=== PATIENT | female | born 1965 | race Caucasian/White ===

== ENCOUNTER 2022-01-21 10:26 | Outpatient (CLI) | payer OTHER, SELFPAY ==
--- NOTE | 2022-01-21 10:15 | MR_ITS ---
[address] [address] Phone:?[phone] Fax:?[phone] Referring Physician Information: Heath Bright M.D. [id number] [facility] [address] Phone:?[phone] Fax:?[phone] Patient:Kathleen Garcia D.O.B:?1965 Sex:?Female Phone:?[phone] [facility] MRN:?[id number] Exam Date:?01/21/2022 ? EXAM: MRI of the LEFT KNEE, without contrast CLINICAL INFORMATION: Female, 56 years old, with left knee pain. INDICATION: Evaluate for lateral meniscal tear. PRIOR SURGERY: None reported. PLAIN FILMS: None available. COMPARISONS: No prior MRIs available. TECHNICAL INFORMATION: Using a 1.5T MR scanner and a localizing surface coil: sagittals: PD, T2FS coronals: PD, T2, STIR axials: PD, T2FS SEDATION: None CONTRAST: None FINDINGS: Knee joint: Effusion: Moderate left knee effusion. Popliteal cyst: None. Loose bodies: None. Subcutaneous and extra-articular soft tissues: Unremarkable. Ligaments: ACL: Moderate marked thickening and abnormal intrasubstance signal throughout the ACL, without ACL tear (sagittal T2FS series 9 images 15 & 16). PCL: Intact PCL, without acute or chronic injury. MCL: Intact MCL superficial and deep layers, without injury. LCL: Intact LCL, without injury. Posterolateral corner: No posterolateral corner soft tissue injury. Popliteus, biceps femoris, iliotibial band, popliteofibular ligament and lateral gastrocnemius are intact. Posteromedial corner: No posteromedial corner soft tissue injury. Semimembranosus, pes anserine tendons and posterior oblique ligament are without injury, tendinopathy or bursitis. Extensor mechanism: Patellar tendon: Mild proximal patellar tendinopathy, without tear. Quadriceps tendon: Intact, without tendinopathy. Retinacula: Medial and lateral retinacula are intact. Fat pads: Unremarkable infrapatellar Hoffa's, quadriceps and prefemoral fat pads. Medial compartment: Medial meniscus: Apical free edge fraying/subtle tearing is present throughout the posterior horn over a length of 1.8 cm (sagittal T2FS series 9 images 9-13). This is associated with a 2 x 3 mm flap fragment at the posterior horn/root junction (sagittal PDFS series 9 image 13). No extrusion or parameniscal cyst. Medial femoral condyle & tibial plateau: Broad-based grade II/III chondromalacia throughout the central, weightbearing aspect of the medial compartment, with mild marginal osteophytosis. Lateral compartment: Lateral meniscus: Complex, multidirectional degenerative tearing throughout nearly the entire lateral meniscus (sagittal T2FS series 9 images 17-25). This is associated with 3 mm of meniscal extrusion. Lateral femoral condyle & tibial plateau: Broad-based grade III/IV chondromalacia throughout the central, weightbearing aspect of the lateral compartment, with moderate marginal osteophytosis (coronal PD series 10 image 21 and sagittal T2FS series 9 image 21). Patellofemoral joint: Patella: Generalized grade III chondromalacia of the patella. Moderate marginal osteophytosis. Trochlea: Generalized grade III chondromalacia of the trochlea, with moderate- marked marginal osteophytosis. Proximal tibiofibular joint: Unremarkable, without evidence of ligament sprain injury, joint effusion or adjacent marrow edema. Bones: No stress/occult fractures or other marrow edema/pathology. IMPRESSION: 1. High-grade, complex degenerative tearing involving essentially entire lateral meniscus, with 3 mm of meniscal extrusion. 2. Apical free edge fraying/subtle tearing of the medial meniscal posterior horn measuring 1.8 cm, with a 2 x 3 mm flap fragment posterior horn/root junction. 3. Moderate-advanced osteoarthritis of the lateral compartment. 4. Moderate osteoarthritis of the patellofemoral compartment. 5. Mild osteoarthritis of the medial compartment. 6. Marked mucinous degeneration of the ACL, without tear. No PCL, MCL, or LCL sprain/tear. 7. Mild proximal patellar tendinopathy, without tear. BC Electronically signed on 01/21/2022 2:08:00 PM by Leo Isabel M.D.
== END 2022-01-21 10:27 | disposition home or self-care (01) ==
LOC: MRI 10:27
PROVIDERS: PCP Family Medicine; Visit Provider Orthopaedic Surgery
DX: M25.562 Pain in left knee (principal); M23.222 Derangement of posterior horn of medial meniscus due to old tear or injury, left knee; S83.282A Other tear of lateral meniscus, current injury, left knee, initial encounter; M17.12 Unilateral primary osteoarthritis, left knee
CPT/HCPCS: 73721

== ENCOUNTER 2022-06-03 20:46 | Emergency (ER) | payer OTHER, SELFPAY ==
[2022-06-03 21:05] VITALS: BP 144/85; PULSE 75; RESP 18; TEMP 36.7; O2SAT 99; BMI 29.9
[2022-06-03 21:08] LABS: Appearance Urine Slightly Cloudy (Clear); Bilirubin Urine Negative (Negative); Blood Urine Trace-intact (Negative); Color Urine Yellow (Yellow); Glucose Urine Negative (Negative); Ketones Urine Trace (Negative); Leukocyte Esterase Urine 1+ (Negative); Nitrite Urine Negative (Negative); Protein Urine 1+ (Negative); Urobilinogen Urine 0.2 (0.2-1.0)
--- NOTE | 2022-06-03 21:20 | ED_ITS ---
HPI - Female Genitourinary General Chief complaint: Urogenital Problems, Female Stated complaint: UTI Time Seen by Provider: 06/03/22 20:57 History of Present Illness HPI Narrative: 57-year-old woman presenting to the emergency department with concern of potential urinary tract infection. She feels that it came on fairly quickly. She has little nervous as has surgery scheduled for the otherwise she was just waited to be seen in clinic. Has had no fever. No nausea. No flank pain. Has been experiencing dysuria since yesterday. Notes that did feel she could take cranberry capsules as could potentiate bleeding. Does have a history Down's remote of a kidney stone in the right flank and she says that this pain is very different. She does have a little bit of some achiness in her right adnexal area. Deeper review of records shows a urine culture collected in May of 2009 showing greater than 100,000 colonies of mixed Gram-positive Related Data Home Medications Medication Instructions Recorded Confirmed acetaminophen 500 mg tablet 500 mg PO PRN 02/18/22 02/18/22 ascorbic acid (vitamin C) 500 mg 500 mg PO DAILY 02/18/22 02/18/22 tablet aspirin 81 mg tablet,delayed 81 mg PO BID 02/18/22 02/18/22 release celecoxib 100 mg capsule 100 mg PO BID 02/18/22 02/18/22 cephalexin 500 mg capsule 2,000 mg PO ONCE 02/18/22 02/18/22 cholecalciferol (vitamin D3) 50 2,000 unit PO DAILY 02/18/22 02/18/22 mcg (2,000 unit) tablet cyclobenzaprine 10 mg tablet 10 mg PO PRN 02/18/22 02/18/22 fluticasone propionate 50 2 intranasal .Daily as needed PRN 02/18/22 02/18/22 mcg/actuation nasal spray,suspension gabapentin 300 mg capsule 300 mg PO TID 02/18/22 02/18/22 levothyroxine 137 mcg tablet 137 mcg PO DAILY 02/18/22 02/18/22 multivitamin with iron 1 tab PO QDAY 02/18/22 02/18/22 omega-3 fatty acids 500 mg capsule 500 mg PO QDAY 02/18/22 02/18/22 selenium 100 mcg tablet 100 mcg PO QDAY 02/18/22 02/18/22 zinc sulfate 50 mg zinc (220 mg) 100 mg PO DAILY 02/18/22 02/18/22 capsule Allergies Allergy/AdvReac Type Severity Reaction Status Date / Time codeine Allergy Severe STATES Verified 02/18/22 10:21 THROAT TIGHTENS, JAW SWELLS latex Allergy Intermediate STATES Verified 02/18/22 10:21 SKIN IRRITATION, RASH penicillin V Allergy Intermediate STATES Verified 02/18/22 10:21 CONTRACTED C DIF adhesive Allergy Unknown Verified 02/18/22 10:21 hydrocodone Allergy Unknown ITCHING, Verified 02/18/22 10:21 RASH oxycodone Allergy Unknown ITCHING, Verified 02/18/22 10:21 RASH nutrasweet Allergy Severe Migraine Uncoded 02/18/22 10:21 Clavulanate Allergy Mild States Uncoded 02/18/22 10:21 Extreme Diarrhea most antibiotics Allergy Unknown Uncoded 02/18/22 10:21 Review of Systems Status of ROS: Reports: 6 or more systems reviewed and unremarkable except as noted in History and below PFSH PFSH Surgical History Status post knee replacement Status post total right knee replacement Family History Father Lung cancer Mother Parkinsons Social History Smoking Status: Never smoker How often do you have a drink containing alcohol: never AUDIT-C Alcohol total score: 0 Non-prescribed substance use: denies use Caffeine: No Exam Narrative: Exam Narrative: Pleasant. Of good energy. Breathing easily. Cranial nerves 2-12 intact. Moving all extremities without difficulty. Transitions without difficulty. Skin is warm and dry. She has no pain to palpation or percussion of the flanks. Is a little sore suprapubic in in the right adnexal area. No peritoneal signs. Const: Vital Signs, click to edit/add: Vital Signs - 24 hr 06/03/22 21:05 Temperature 98.0 F Pulse Rate [Right Pulse Oximeter] 75 Respiratory Rate 18 Blood Pressure [Ri ght Upper Arm] 144/85 H Pulse Oximetry 99 Oxygen Delivery Me thod Room Air Documenting provider has reviewed patient's vital signs: yes Course Course Hospital Course: Urinalysis collected by the time I am seeing Ms. Finger. Vital Signs Vital signs: Initial Vital Signs Temperature 98.0 F 06/03/22 21:05 Temperature Source Temporal Artery Scan 06/03/22 21:05 Pulse Rate 75 06/03/22 21:05 Respiratory Rate 18 06/03/22 21:05 Blood Pressure 144/85 H 06/03/22 21:05 Blood Pressure Mean 104 06/03/22 21:05 Blood Pressure Position Sitting 06/03/22 21:05 Pulse Oximetry 99 06/03/22 21:05 Oxygen Delivery Method 06/03/22 21:05 Vital Signs Temperature 98.0 F 06/03/22 21:05 Pulse Rate 75 06/03/22 21:05 Respiratory Rate 18 06/03/22 21:05 Blood Pressure 144/85 H 06/03/22 21:05 Pulse Oximetry 99 06/03/22 21:05 Oxygen Delivery Method 06/03/22 21:05 Temperature 98.0 F 06/03/22 21:05 Pulse Rate 75 06/03/22 21:05 Respiratory Rate 18 06/03/22 21:05 Blood Pressure 144/85 H 06/03/22 21:05 Pulse Oximetry 99 06/03/22 21:05 Oxygen Delivery Method 06/03/22 21:05 MDM - Female Genitourinary MDM Narrative Medical decision making narrative: Clinical picture and urinalysis I think is consistent with cystitis. Urine culture pending Sounds like has had cephalexin before had as prophylaxis for dental procedures due to orthopedic procedures. Reports underlying history of Clostridium difficile. Lab Data Attestation: I reviewed the patient's lab results. Labs: Lab Results 06/03/22 Range/Units 21:00 Urine Color Yellow (Yellow) Urine Appearance Slightly Cloudy A (Clear) Urine pH 7.0 (5.0-8.5) Ur Specific [place] 1.020 (1.000-1.030) Urine Protein 1+ A (Negative) Urine Glucose (UA) Negative (Negative) Urine Ketones Trace A (Negative) Urine Blood Trace-intact A (Negative) Urine Nitrite Negative (Negative) Urine Bilirubin Negative (Negative) Urine Urobilinogen 0.2 (0.2-1.0) Ur Leukocyte Esterase 1+ A (Negative) Urine RBC 2-5 A (0-2) Urine WBC 10-25 A (0-5) Ur Squamous Epith Cells Few (None-Few) Urine Bacteria Few A (None) Discharge Plan Discharge Clinical Impression: Cystitis Patient Disposition: Home, Self-Care Condition: Stable Additional Instructions: Stay well-hydrated; water is good. Report increasing abdominal/flank pain, vomiting, associated fever. Urine culture will be pending here. Best wishes on your upcoming surgery. Cephalexin and phenazopyridine from [facility] Prescriptions: No Action cholecalciferol (vitamin D3) 50 mcg (2,000 unit) tablet 2,000 unit PO DAILY zinc sulfate 50 mg zinc (220 mg) capsule 100 mg PO DAILY fluticasone propionate 50 mcg/actuation spray,suspension 2 intranasal .Daily as needed PRN gabapentin 300 mg capsule 300 mg PO TID ascorbic acid (vitamin C) 500 mg tablet 500 mg PO DAILY levothyroxine 137 mcg tablet 137 mcg PO DAILY cyclobenzaprine 10 mg tablet 10 mg PO PRN selenium 100 mcg tablet 100 mcg PO QDAY omega-3 fatty acids 500 mg capsule 500 mg PO QDAY multivitamin with iron Tablet 1 tab PO QDAY celecoxib 100 mg capsule 100 mg PO BID cephalexin 500 mg capsule 2,000 mg PO ONCE Rx Instructions: Take 4 capsules 1 hour prior to dental appointment acetaminophen 500 mg tablet 500 mg PO PRN aspirin 81 mg tablet,delayed release (DR/EC) 81 mg PO BID Follow Up/Referrals: Ilda Pozo MD [Primary Care Provider] - Stand Alone Forms: [employer] Info Instructions
[2022-06-03 21:34] LABS: Bacteria Urine Few; Squamous Epithelial Cell Urine Few (None-Few)
== END 2022-06-03 21:49 | disposition home or self-care (01) ==
PROVIDERS: Emergency Provider Family Medicine; PCP Family Medicine
DX: N30.90 Cystitis, unspecified without hematuria (principal)
CPT/HCPCS: 81001; 87086; 99283

== ENCOUNTER 2022-06-09 10:29 | Day surgery (SDC) | payer OTHER, SELFPAY ==
[2022-06-09] VITALS (22 sets, daily range): BP systolic 94–156; BP diastolic 58–109; PULSE 59–86; RESP 12–18; TEMP 35.8–37.2; O2SAT 93–99; BMI 37.3
[2022-06-09] MEDS: CELECOXIB 200 MG CAPSULE PO ×2 (10:36→21:01)
[2022-06-09] MEDS: MIDAZOLAM HCL 1 MG/ML inj IVP (10:36)
[2022-06-09] MEDS: ACETAMINOPHEN 500 MG TABLET 1000 MG PO ×2 (10:36→18:33)
[2022-06-09] MEDS: fentaNYL 100 MCG/2 ML inj IVP (12:16)
--- NOTE | 2022-06-09 12:23 | SUR.PREOP ---
TIME?OUT:?1215 PT/RN/MDA?VERIFICATION?OF?SURGICAL?SITE,?PROCEDURE,?AND?CONSENT OBTAINED?PRIOR?TO?INVASIVE?PROCEDURE.
[2022-06-09] MEDS: CEFAZOLIN 2 GM INJ IVP (13:00)
--- NOTE | 2022-06-09 14:11 | CRLHL7_ITS ---
For Patients: As a result of the Cures Act, medical imaging exams and procedure reports are released immediately into your electronic medical record. You may view this report before your referring provider. If you have questions, please contact your health care provider. Indication: POST-OP LEFT TKA Technique: Two views left knee Findings/Impression: Hardware from a left total knee arthroplasty is in satisfactory position. Bone alignment is normal. No sign of acute fracture. Postop changes are within normal limits. Dictated by Fran Taveras MD @ 06/10/2022 9:10:22 AM (Electronically Signed)
--- NOTE | 2022-06-09 14:16 | P.ORPRC_ITS ---
Procedure Note Date of procedure: 06/09/22 Procedure: SURGEON: Heath Bright MD RESPIRATORY SUPERVISOR: Nasrin Devine PA-C PREOPERATIVE DIAGNOSIS: Left knee osteoarthritis POSTOPERATIVE DIAGNOSIS: Left knee osteoarthritis NAME OF OPERATION: Left total knee arthroplasty ANESTHESIA: Spinal ESTIMATED BLOOD LOSS: 0 mL COMPLICATIONS: None SPECIMENS: None DRAINS: None PREOPERATIVE ANTIBIOTICS: Ancef 2 grams IMPLANTS: 1. J&J Attune # 6 narrow posterior stabilized femur 2. # 4 fixed-bearing tibia 3. #6 posterior stabilized, 5 mm fixed-bearing polyethylene 4. 38 patella INDICATIONS: The patient is a 57-year-old with a longstanding history of severe, unrelenting left knee pain secondary to end-stage (grade IV) left knee osteoarthritis. Despite appropriate nonoperative management, including activity modification, anti-inflammatories, [id number] pain medication, bracing, physical therapy, and injections they continue to have pain and disability. Operative intervention was offered. The risks, benefits and expected outcomes were discussed in detail. These included but were not limited to: Infection, bleeding, injury to blood vessel or nerve, venous thromboembolism. All questions were answered to their satisfaction. Use of an assistant gm of content & delivery was necessary throughout the case for patient positioning and safety, soft tissue retraction, and closure. PROCEDURE: Spinal anesthesia was administered. The patient was placed supine on the operating table. The assistant gm of content & delivery made sure the patient was positioned appropriately. The lower extremity was prepped and draped in the usual sterile fashion. The limb was exsanguinated with the Sathya bandage. The pneumatic tourniquet was inflated to 300 mmHg. A standard anterior incision was made with the knee in flexion. Subcutaneous dissection was sharply taken through fascial layer #1. Full-thickness medial and lateral flaps were elevated. The assistant gm of content & delivery retracted the soft tissues and protected them throughout the case. A standard medial parapatellar approach was made. The patella was everted. The infrapatellar fat pad was preserved. The menisci and cruciate ligaments were sharply d?brided. Marginal osteophytes were d?brided with the rongeur. The drill was used to penetrate the femoral canal. The canal was aspirated and irrigated with pulse lavage. The intramedullary femoral guide was placed for a 5-degree valgus cut, removing 10 mm off the distal femur. The saw was used to make the cut. Whitesides line and the trans epicondylar axis were marked. The femoral sizing guide was pinned onto the distal femur. Three degrees of external rotation nicely parallels the transepicondylar axis. Pins were placed for posterior referencing. The four-in-one cutting guide was pinned onto the distal femur. The anterior, posterior, and chamfer cuts were made. The assistant gm of content & delivery protected the collateral ligaments. The box cutting guide was pinned. The box cuts were made. The boxed trial was placed and was an excellent fit. Drill holes for the lugs were made. Attention was then turned to the proximal tibia. The extramedullary tibial guide was placed for a neutral varus/valgus cut with 5 degrees of posterior slope, removing 2 mm based off the medial tibial surface. The assistant gm of content & delivery protected the collateral ligaments and the neurovascular bundle. The saw was used to make the cut. Trial components were placed. The knee was nicely balanced in both flexion and extension. The trial components were removed. The tray was placed in appropriate rotation, parallel to our tibial cutting pins. It was pinned by the assistant gm of content & delivery and the drill and the punch were used. The tray was removed. The punch was used again. We placed a bone plug in the femoral canal. Attention was then turned to the patella. [place] patellar thickness was 23 mm. The lobster claw resection guide was used with the 9.5 mm yessenia. The saw was used to make the cut. Drill holes were made by the assistant gm of content & delivery. The trial was placed and was an excellent fit. Cancellous surfaces were irrigated with pulse lavage and thoroughly dried by the assistant gm of content & delivery. We cemented the tibial component, then the femoral component. We impacted the 5 mm polyethylene onto the tibial tray. The knee was brought into full extension. We then cemented the patellar component. Excessive cement was removed. The cement was allowed to harden. The knee was taken through a range of motion and was found to be nicely balanced in both flexion and extension. The patella tracks centrally. The assistant gm of content & delivery did a three minute dilute Betadine solution soak. The assistant gm of content & delivery irrigated the wound with 3 liters of normal saline via pulse lavage. The assistant gm of content & delivery reapproximated the extensor mechanism with #1 Vicryl in an interrupted [id number] fashion. The assistant gm of content & delivery then ran the extensor mechanism with a #1 PDO Stratafix. The assistant gm of content & delivery closed the subcutaneous tissues with a 3-0 Stratafix and the skin with a running 3-0 Stratafix in a subcuticular fashion. Glue was used to seal the skin. The assistant gm of content & delivery placed a dry dressing, LEONEL stocking, and Polar Care. Sponge and needle counts were correct x2. The patient tolerated the procedure well. There were no apparent complications. They were carefully transferred to the hospital bed and taken to the postanesthesia care unit in satisfactory condition. PLAN: The patient will be mobilized with physical therapy. Aspirin will be used for DVT prophylaxis. They will be discharged to home once medically appropriate.
[2022-06-09] MEDS: LACTATED RINGERS 1000 ML 1,000 ML 100 ML IV (15:14)
--- NOTE | 2022-06-09 15:19 | W.ANESCHARGE ---
Anesthesia Charges Start Date/Time Anesthesia Start Date: 06/09/22 Anesthesia Start Time: 12:43 Stop Date/Time Anesthesia Stop Date: 06/09/22 Anesthesia Stop Time: 15:19 Summary Emergency: No
[2022-06-09] MEDS: LACTATED RINGERS 1000 ML 1,000 ML 75 ML IV (15:56)
--- NOTE | 2022-06-09 15:57 | W.ANESCHARGE ---
Anesthesia Charges Start Date/Time Anesthesia Start Date: 06/09/22 Anesthesia Start Time: 12:43 Stop Date/Time Anesthesia Stop Date: 06/09/22 Anesthesia Stop Time: 15:19 Summary Emergency: No
--- NOTE | 2022-06-09 15:58 | W.PM.NB ---
Nerve Block Nerve Block Time Seen by Provider: 12:15 Date Seen: 06/09/22 Type of block requested by surgeon for post-operative analgesia: adductor canal Side: left Time out performed: Yes Verification of patient name: Yes Verification of date of : Yes Site marking: site marked Name of person performing procedure: Stanley Continuous monitoring Was continuous monitoring of O2 sat, B/P, personnel monitor, recorded every 15 minutes?: Yes Procedure Checklist: sterile prep, needles and gloves Ultrasound guided. Images saved: Yes Medications given in 5ml increments after negative aspiration: Ropivicaine %: 0.5 mL: 20 Needle gauge: 20 Decadron (mg): 10 Precedex (mcg): 25 Patient tolerated procedure well: Yes Additional comments: Needle noted adjacent to nerve Block Charges Block Charge (with Pro Fee): Femoral Nerve Use of Ultrasound Machine for Block: Yes- US Guidance/pain block
--- NOTE | 2022-06-09 15:59 | W.PM.NB ---
Nerve Block Nerve Block Time Seen by Provider: 12:15 Date Seen: 06/09/22 Type of block requested by surgeon for post-operative analgesia: geniculars Side: left Time out performed: Yes Verification of patient name: Yes Verification of date of : Yes Site marking: site marked Name of person performing procedure: Stanley Continuous monitoring Was continuous monitoring of O2 sat, B/P, oral and maxillofacial pathologist, recorded every 15 minutes?: Yes Procedure Checklist: sterile prep, needles and gloves Medications given in 5ml increments after negative aspiration: Ropivicaine %: 0.5 mL: 9 Needle gauge: 25 Patient tolerated procedure well: Yes Block Charges Block Charge (with Pro Fee): Genicular Nerve Block Use of Ultrasound Machine for Block: No
--- NOTE | 2022-06-09 16:13 | PM.IMCN1 ---
Date of Consult Consult date: 06/09/22 Requesting Physician: Orthopedics Primary Care Provider: Ilda Pozo MD Consult Narrative Reason for consult: Postoperative medical management Narrative: Carolina Garcia is a 57 year old female admitted to the hospital for left total knee arthroplasty. Procedures performed by Dr. Bright. There were no complications. Postoperatively she is generally doing well. Her spinal anesthesia still in effect and so she is having no pain and no sensation in her legs. She is now awake and able to carry on a conversation. Preoperatively she was doing well. She did have a suspected urinary tract infection with mild dysuria. She was seen in the emergency department where she had I urinalysis and urine culture. The urinalysis showed pyuria. The urine culture subsequently grew less than 50,000 colonies of mixed Gram-positive sean. Her symptoms have resolved with a 5 day treatment of cephalexin. Preop physical did not identify any significant perioperative concerns. Review of Systems Narrative: She reports no concerns or recent illness other than her urinary symptoms last week, now resolved. She is observed to snore when she sleeps on her back. She has not had a formal sleep study or diagnosis of sleep apnea. 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 Degenerative tear of lateral meniscus of left knee Degenerative tear of left medial meniscus Diabetic neuropathy Herniated lumbar intervertebral disc Hyperlipidemia Hypothyroidism Laceration of scalp Osteoarthritis of left knee Sciatica Type 2 diabetes mellitus Surgical History (Updated 06/09/22 @ 16:17 by Thierno Fernandes MD) History of section History of hemorrhoidectomy History of rectal sphincterotomy Status post knee replacement Status post total right knee replacement Family History Father Lung cancer Mother Parkinsons Social History (Updated 06/09/22 @ 16:19 by Thierno Fernandes MD) Narrative: She does not smoke. She rarely drinks alcohol. Smoking Status: Never smoker Second hand tobacco smoke exposure: No How often do you have a drink containing alcohol: monthly or less How many standard drinks containing alcohol do you have on a typical day: 1 or 2 How often do you have six or more drinks on one occasion: Never AUDIT-C Alcohol total score: 1 Non-prescribed substance use: marijuana (any form) Non-prescribed substance use details: CBD/THC- vaping or gummies Caffeine: No Meds Home Medications and Allergies Home Medications Medication Instructions Recorded Confirmed Type fluticasone propionate 50 2 spray intranasal DAILY PRN 02/18/22 06/09/22 History mcg/actuation nasal spray,suspension gabapentin 300 mg capsule 300 - 600 mg PO BID 02/18/22 06/09/22 History levothyroxine 137 mcg tablet 137 mcg PO DAILY 02/18/22 06/09/22 History multivitamin with iron 1 tab PO DAILY 02/18/22 06/09/22 History celecoxib 200 mg capsule (Celebrex) 200 mg PO BID 06/09/22 06/09/22 History semaglutide 0.25 mg or 0.5 mg (2 0.5 mg subcut .WEEKLY 06/09/22 06/09/22 History mg/1.5 mL) subcutaneous pen injector (Ozempic) Allergies Allergy/AdvReac Type Severity Reaction Status Date / Time codeine Allergy Severe STATES Verified 02/18/22 10:21 THROAT TIGHTENS, JAW SWELLS latex Allergy Intermediate STATES Verified 02/18/22 10:21 SKIN IRRITATION, RASH penicillin V Allergy Intermediate STATES Verified 02/18/22 10:21 CONTRACTED C DIF adhesive Allergy Unknown Verified 02/18/22 10:21 hydrocodone Allergy Unknown ITCHING, Verified 02/18/22 10:21 RASH oxycodone Allergy Unknown ITCHING, Verified 02/18/22 10:21 RASH nutrasweet Allergy Severe Migraine Uncoded 02/18/22 10:21 Clavulanate Allergy Mild States Uncoded 02/18/22 10:21 Extreme Diarrhea most antibiotics Allergy Unknown Uncoded 02/18/22 10:21 Allergies/Adverse Reaction Comments: Amoxicillin caused her to get C diff infection Hydrocodone and oxycodone caused itching. She tolerates hydromorphone without difficulty Exam Narrative: Exam Narrative: She is alert and appears in no distress. Eyes normal. Oropharynx with small airway. Neck is supple without mass or adenopathy. Respirations are clear to auscultation. Breathing is unlabored. Cardiovascular: S1, S2, regular rate and rhythm. No murmur gallop or rub. Abdomen: Bowel sounds active. Abdomen is soft without tenderness or mass. Extremities with intact pulses and currently absent sensation. No edema. Const: Vital Signs, click to edit/add: Vital Signs - 24 hr 06/09/22 10:56 06/09/22 15:15 06/09/22 15:20 Temperature 97.8 F 97.8 F Pulse Rate 70 70 66 Pulse Rate [Left P ulse Oximeter] Respiratory Rate 16 16 14 Blood Pressure 125/87 98/58 L 94/62 Blood Pressure [Le ft Arm] Pulse Oximetry 96 94 96 Oxygen Delivery Me thod Room Air Room Air 06/09/22 15:25 06/09/22 15:30 06/09/22 15:35 Temperature Pulse Rate 64 64 62 Pulse Rate [Left P ulse Oximeter] Respiratory Rate 14 16 14 Blood Pressure 96/64 105/75 104/61 Blood Pressure [Le ft Arm] Pulse Oximetry 95 95 93 Oxygen Delivery Me thod 06/09/22 15:40 06/09/22 15:45 06/09/22 16:00 Temperature 97.2 F L 97.2 F L Pulse Rate 60 63 Pulse Rate [Left P ulse Oximeter] 59 L Respiratory Rate 12 12 16 Blood Pressure 109/63 99/63 Blood Pressure [Le ft Arm] 118/63 Pulse Oximetry 94 94 96 Oxygen Delivery Me thod Room Air Assessment and Plan Assessment and plan (1) Arthritis of knee: Problem comment: Postop knee replacement 06/09/2022 without complications. Anticipate routine management with therapy and pain management. Status: Acute (2) Type 2 diabetes mellitus: Problem comment: Continue home treatment. Sliding scale insulin. Status: Acute Plan Routine management with therapy and pain management. Monitor for evidence of sleep apnea, hypoxia. Sliding scale insulin with probable return to home on normal diabetes management. Total time spent today is 25 minutes, 20 minutes in coordination of care discussing with patient and other providers management of diabetes and postoperative care
[2022-06-09] MEDS: HYDROmorphone 2 MG TABLET PO (18:34)
[2022-06-09] MEDS: CEFAZOLIN 2 GM in 0.9 % SODIUM CHLORIDE Mini-bag 100 ML IVPB (18:35)
[2022-06-09] MEDS: HYDROmorphone 0.5 mg/0.5 ml inj IVP ×2 (18:42→23:18)
[2022-06-09] MEDS: SENNOSIDES 1 TAB TABLET 2 TAB PO (21:01)
[2022-06-09] MEDS: GABAPENTIN 300 MG CAPSULE 600 MG PO (21:01)
[2022-06-09] MEDS: ASPIRIN 81 MG TABLET EC PO (21:01)
--- NOTE | 2022-06-09 22:19 | PC.NURSE ---
Shift Note [id number]: Pt friendly and cooperative. Initially rated pain 0/10 but later stated pain creeped in fast and described it as 10/10. Dilaudid PO given and pt described ongoing discomfort, restless, and fidgeting. Dilaudid given IVP and provided relief with pt rating pain 3/10 for about 2 hours. Pt again c/o severe increase in discomfort. Redirected, repositioned, ice pack changed, and warm blanket provided. Pt seems more comfortable now with daughter at bedside. VS WNL and LS COA. Moves well with assist x1 with walker and GB. Advanced to regular diet without difficulty. Pt does have quite a few food intolerances/sensitivities including adhering to gluten free diet. BG 155 and 263.
[2022-06-09] MEDS: LORazepam 0.5 MG TABLET PO (22:22)
[2022-06-10] MEDS: ACETAMINOPHEN 500 MG TABLET 1000 MG PO ×3 (00:26→11:48)
[2022-06-10] MEDS: HYDROmorphone 2 MG TABLET PO ×5 (00:27→13:10)
[2022-06-10] MEDS: LORazepam 0.5 MG TABLET PO (00:35)
[2022-06-10 03:00] VITALS: BP 114/68; PULSE 75; RESP 16; TEMP 36.5; O2SAT 96
[2022-06-10] MEDS: CEFAZOLIN 2 GM in 0.9 % SODIUM CHLORIDE Mini-bag 100 ML IVPB ×2 (03:04→11:47)
--- NOTE | 2022-06-10 06:11 | PC.NURSE ---
[id number]: Patient cooperative with cares. Patient struggles with pain management. PRN PO Dilaudid increased from Q6H to Q2H. Seemed to maintain a therapeutic pain level of 2-3 better. Eating and voiding. Denies N/V. A1,walker,GB. Moves well. Dressing to L. knee C/D/I. CMS intact.
[2022-06-10] MEDS: LEVOTHYROXINE 25 MCG TABLET PO (06:37)
[2022-06-10] MEDS: LEVOTHYROXINE 112 MCG TABLET PO ×2 (06:37)
[2022-06-10 07:00] VITALS: BP 110/70; PULSE 62; PULSE 75; RESP 16; RESP 18; TEMP 36.4; O2SAT 96
[2022-06-10 07:15] LABS: Basophils Absolute Auto 0.01 K/uL (0.00-0.30); Basophils Percent Auto 0.1 % (0.0-3.0); Hematocrit 35.7 % (33.0-51.0); Hemoglobin* 12.1 gm/dL (12.0-16.0); Immature Granulocytes Abs Auto 0.02 K/uL (0.00-0.30); Immature Granulocytes Pct Auto 0.2 %; Lymphocytes Percent Auto 11.8 % (20-44); Mean Corpuscular HGB Conc 34 gm/dL (32-36); Mean Corpuscular Hemoglobin 29 pg (26-34); Mean Corpuscular Volume 87 fL (80-100); Monocytes Percent Auto 9.6 % (0.0-11.0); Neutrophils Percent Auto 78.3 % (42.0-72.0); Platelet Count* 192 K/uL (140-440); RDW Coefficient of Variation % 13.6 % (11.5-15.5); Red Blood Count 4.12 m/uL (4.00-5.20); White Blood Count* 9.65 K/uL (4.50-11.00)
[2022-06-10 07:18] LABS: Slide Review Reflex No
[2022-06-10 07:36] LABS: INR 0.95 (0.91-1.10); Prothrombin Time 13.2 Seconds; Sodium* 139 mmol/L (135-149)
[2022-06-10 07:39] LABS: Creatinine* 0.4 mg/dL (0.5-1.5); Est. Creatinine Clearance* 136.27; Estimated Glomerular Filt Rate 114 ml/min
[2022-06-10 07:40] LABS: Blood Urea Nitrogen* 19 mg/dL (7-30)
--- NOTE | 2022-06-10 08:45 | PM.ORPN ---
Subjective Subjective Time Seen by Provider: 07:30 Date Seen: 06/10/22 Principal diagnosis: Status post left knee replacement Interval history: Carolina is comfortable this morning. She is happy to have minimal swelling in her knee. After her right knee replacement she had significant effusion and swelling right after surgery. Ortho Exam Narrative Exam Narrative: Alert and oriented x3. Patient is in no acute distress. Converses without labored breathing. Hearing is grossly intact. Ambulates with a walker. Examination of the left knee shows very minimal soft tissue edema or effusion. Dressing is intact. CMS intact left lower extremity. Bilateral calves are soft and nontender. Const Vital Signs, click to edit/add: Vital Signs - 24 hr 06/09/22 10:56 06/09/22 15:15 06/09/22 15:20 Temperature 97.8 F 97.8 F Pulse Rate 70 70 66 Pulse Rate [Left Pulse Oximeter] Respiratory Rate 16 16 14 Blood Pressure 125/87 98/58 L 94/62 Blood Pressure [Left Arm] Pulse Oximetry 96 94 96 Oxygen Delivery Method Room Air Room Air 06/09/22 15:25 06/09/22 15:30 06/09/22 15:35 Temperature Pulse Rate 64 64 62 Pulse Rate [Left Pulse Oximeter] Respiratory Rate 14 16 14 Blood Pressure 96/64 105/75 104/61 Blood Pressure [Left Arm] Pulse Oximetry 95 95 93 Oxygen Delivery Method 06/09/22 15:40 06/09/22 15:45 06/09/22 16:00 Temperature 97.2 F L 97.2 F L Pulse Rate 60 63 Pulse Rate [Left Pulse Oximeter] 59 L Respiratory Rate 12 12 16 Blood Pressure 109/63 99/63 Blood Pressure [Left Arm] 118/63 Pulse Oximetry 94 94 96 Oxygen Delivery Method Room Air 06/09/22 15:55 06/09/22 16:25 06/09/22 16:15 Temperature 96.9 F L 96.5 F L Pulse Rate 62 Pulse Rate [Left Pulse Oximeter] 62 59 L Respiratory Rate 16 16 16 Blood Pressure Blood Pressure [Left Arm] 121/68 125/75 Pulse Oximetry 96 Oxygen Delivery Method Room Air Room Air 06/09/22 16:30 06/09/22 16:45 06/09/22 17:15 Temperature 97.8 F Pulse Rate Pulse Rate [Left Pulse Oximeter] 68 67 70 Respiratory Rate 16 16 16 Blood Pressure Blood Pressure [Left Arm] 126/77 114/75 141/64 H Pulse Oximetry 98 99 99 Oxygen Delivery Method Room Air Room Air Room Air 06/09/22 17:45 06/09/22 18:15 06/09/22 18:45 Temperature Pulse Rate Pulse Rate [Left Pulse Oximeter] 79 75 84 Respiratory Rate 16 16 16 Blood Pressure Blood Pressure [Left Arm] 128/69 112/70 127/65 Pulse Oximetry 98 97 96 Oxygen Delivery Method Room Air Room Air Room Air 06/09/22 19:45 06/09/22 20:45 06/09/22 22:17 Temperature 98 F 97.9 F Pulse Rate Pulse Rate [Left Pulse Oximeter] 86 84 81 Respiratory Rate 16 16 16 Blood Pressure Blood Pressure [Left Arm] 132/68 141/82 H 138/76 Pulse Oximetry 96 96 97 Oxygen Delivery Method Room Air Room Air Room Air 06/09/22 23:00 06/10/22 03:00 Temperature 98.9 F 97.7 F Pulse Rate Pulse Rate [Left Pulse Oximeter] 86 75 Respiratory Rate 18 16 Blood Pressure Blood Pressure [Left Arm] 156/109 H 114/68 Pulse Oximetry 97 96 Oxygen Delivery Method Room Air Room Air Assessment and Plan Assessment and plan (1) Arthritis of knee: Problem details: Postop knee replacement 06/09/2022 without complications. Anticipate routine management with therapy and pain management. Status: Acute Assessment and Plan: Plan for discharge is today to home if they meet discharge criteria. DVT prophylaxis includes aspirin 81 mg twice daily x1 month, Reilly stockings x1 month may remove for 1 hr per day, frequent ambulation Remove dressing in 1 week. Observe wound and phone Orthopedics with any questions or concerns Return to clinic in 1 week for a wound check Return to clinic in [address] Bright Minimize narcotic use, Dilaudid 2 mg p.o. q.6 hours p.r.n. for tabs per day, # 28 sent to her pharmacy. Wean off and discontinue soon as possible. Activities as tolerated. No strenuous activity. Outpatient physical therapy as scheduled. Ice and elevate the operative extremity. No restriction on ice. (2) Type 2 diabetes mellitus: Problem details: Continue home treatment. Sliding scale insulin. Status: Acute
[2022-06-10] MEDS: CELECOXIB 200 MG CAPSULE PO (09:58)
[2022-06-10] MEDS: SENNOSIDES 1 TAB TABLET 2 TAB PO (09:58)
[2022-06-10] MEDS: MULTIVITAMIN/MINERALS 1 TABLET 1 TAB PO (09:58)
[2022-06-10] MEDS: ASPIRIN 81 MG TABLET EC PO (09:58)
[2022-06-10 11:00] VITALS: BP 120/70; PULSE 68; RESP 24; TEMP 36.8; O2SAT 98
--- NOTE | 2022-06-10 11:05 | PC.SOCIAL ---
Addendum entered by ESTUARDO Gonzalez 06/10/22 11:07: Rn Clinical Review reviewed and agrees with this note. Original Note: Social work note: Met with pt. today about discharge planning. Pt. states that she has a large support system at home to care for her, including spouse, nearby son, and visiting daughter. Pt. states that home is completely accessible to her, all needs are on the first floor of the home, and she is comfortable scaling stairs with family assistance when appropriate. Pt. has no further concerns at this time. Pt. is aware that she can reach out to hospital with any future concerns.
--- NOTE | 2022-06-10 16:52 | PC.NURSE ---
Nursing Care Hours [id number] Pt this shift calm and cooperative. sitting up in chair upon arrival. Pain rating 2-4/10 at rest and 5-7/10 with movement. Treated with hydromorphone PRN and scheduled Tylenol see eMAR. Tolerating regular diet, ambulating with 1 assist using walker and gait belt to the bathroom. CMS intact, minimal bruising around knee. Dressing CDI. Cryocuff on, TEDS on, and excellent use of IS. Discharged home today with daughter. Discharge instructions went over with pt, all questions and concerns addressed. Wheeled out to car.
== END 2022-06-10 13:54 | disposition home or self-care (01) ==
LOC: OR 10:30 → MEDSURG 10:32
PROVIDERS: PCP Family Medicine; Visit Provider Orthopaedic Surgery
PROC: (CPT 27447; principal; 2022-06-09 12:15)
DX: M17.12 Unilateral primary osteoarthritis, left knee (principal); M25.562 Pain in left knee; E11.40 Type 2 diabetes mellitus with diabetic neuropathy, unspecified; E78.5 Hyperlipidemia, unspecified; E03.9 Hypothyroidism, unspecified; M51.26 Other intervertebral disc displacement, lumbar region
CPT/HCPCS: 27447; 1402; 36415; 64447; 64454; 73560; 76942; 82565; 84132; 84295; 84520; 85025; 85610; 97110; 97116; 97161; 97165; 97535; A9153; A9270; C1776; J0690; J1100; J1170; J2250; J2370; J2704; J2795; J3010; J7120

== ENCOUNTER 2022-06-28 09:53 | Emergency (ER) | payer OTHER, SELFPAY ==
[2022-06-28 10:11] VITALS: BP 142/103; PULSE 90; RESP 20; TEMP 37.2; O2SAT 98; BMI 39.0
--- NOTE | 2022-06-28 10:19 | CRLHL7_ITS ---
For Patients: As a result of the Cures Act, medical imaging exams and procedure reports are released immediately into your electronic medical record. You may view this report before your referring provider. If you have questions, please contact your health care provider. HISTORY: Postoperative knee pain. TECHNIQUE: Three views of the left knee. COMPARISON: 06/09/2022. FINDINGS: Left total knee arthroplasty with patellar resurfacing procedure. There is no periprosthetic fracture or hardware loosening. No dislocation. No soft tissue gas. IMPRESSION: Intact left total knee arthroplasty. Dictated by Qasim Diaz MD @ 06/28/2022 11:59:59 AM Dictated by: Qasim Daiz MD @ 06/28/2022 12:00:04 (Electronically Signed)
--- NOTE | 2022-06-28 10:22 | CRLHL7_ITS ---
For Patients: As a result of the Century Cures Act, medical imaging exams and procedure reports are released immediately into your electronic medical record. You may view this report before your referring provider. If you have questions, please contact your health care provider. INDICATION: Left leg pain and swelling. Redness. Postsurgical. TECHNIQUE: Ultrasound venous duplex lower left extremity. Compression venous exam was performed using barbosa-scale, color Doppler, and spectral Doppler imaging. COMPARISON: No prior ultrasound. FINDINGS: Sonographic imaging demonstrates the left common femoral, deep femoral, superficial femoral, popliteal, posterior tibial and greater saphenous and the contralateral right common femoral veins to be fully compressible with normal color Doppler blood flow. IMPRESSION: No DVT within the left lower extremity. Dictated by Qasim Diaz MD @ 06/28/2022 12:12:11 PM Dictated by: Qasim Diaz MD @ 06/28/2022 12:12:58 (Electronically Signed)
--- NOTE | 2022-06-28 10:26 | ED_ITS ---
HPI - General Adult General Time Seen by Provider: 10:26 Date Seen: 06/28/22 Chief complaint: Skin/Abscess/Foreign Body Stated complaint: redness rash, swelling post knee surgery Time Seen by Provider: 06/28/22 10:09 Source: patient Mode of arrival: wheelchair Limitations: physical limitation History of Present Illness HPI narrative: Patient is a 57 year white female had her left knee replaced about 3 weeks ago. Three 4 days ago she was working physical therapy in noted that her wound over her knee was somewhat irritated and reddened subsequently she developed some redness around her knee and the wound itself looks better, but now she has got some redness in her calf and about her knee, even extending to her medial ankle. Notices a little bit more swelling in the knee area. No marked rigors or chills but patient does feel good amount of discomfort. She has allergy to most antibiotics but has taken Keflex before safely and has taken hydromorphone or D ilaudid in the past for pain. No chest pain, breathing difficulty, rigors, COVID symptoms. Related Data Home Medications Medication Instructions Recorded Confirmed fluticasone propionate 50 2 spray intranasal DAILY PRN 02/18/22 06/17/22 mcg/actuation nasal spray,suspension gabapentin 300 mg capsule 300 - 600 mg PO BID 02/18/22 06/17/22 levothyroxine 137 mcg tablet 137 mcg PO DAILY 02/18/22 06/17/22 multivitamin with iron 1 tab PO DAILY 02/18/22 06/17/22 celecoxib 200 mg capsule (Celebrex) 200 mg PO BID 06/09/22 06/17/22 semaglutide 0.25 mg or 0.5 mg (2 0.5 mg subcut .WEEKLY 06/09/22 06/17/22 mg/1.5 mL) subcutaneous pen injector (Ozempic) Previous Rx's Medication Instructions Recorded acetaminophen 500 mg capsule 500 - 1,000 mg PO Q6H PRN pain 06/09/22 #100 caps aspirin 81 mg chewable tablet 81 mg PO BID for DVT prophylaxis 06/09/22 (Aspirin Childrens) 30 days #60 tabs sennosides 8.6 mg tablet (Senna 17.2 mg PO BID PRN constipation 06/09/22 Lax) #100 tabs hydromorphone 2 mg tablet 2 mg PO Q6H PRN pain #28 tabs 06/17/22 cephalexin 500 mg capsule 500 mg PO QID #20 caps 06/28/22 hydromorphone 2 mg tablet 2 mg PO Q6H #10 tabs 06/28/22 (Dilaudid) Allergies Allergy/AdvReac Type Severity Reaction Status Date / Time codeine Allergy Severe STATES Verified 06/17/22 09:01 THROAT TIGHTENS, JAW SWELLS latex Allergy Intermediate STATES Verified 06/17/22 09:01 SKIN IRRITATION, RASH penicillin V Allergy Intermediate STATES Verified 06/17/22 09:01 CONTRACTED C DIF adhesive Allergy Unknown Verified 06/17/22 09:01 hydrocodone Allergy Unknown ITCHING, Verified 06/17/22 09:01 RASH oxycodone Allergy Unknown ITCHING, Verified 06/17/22 09:01 RASH nutrasweet Allergy Severe Migraine Uncoded 06/17/22 09:01 Clavulanate Allergy Mild States Uncoded 06/17/22 09:01 Extreme Diarrhea most antibiotics Allergy Unknown Uncoded 06/17/22 09:01 Review of Systems Status of ROS: Reports: 6 or more systems reviewed and unremarkable except as noted in History and below [facility] Medical History Arthritis of knee Contusion Cystitis 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 She rarely drinks alcohol. Smoking Status: Never smoker Second hand tobacco smoke exposure: No How often do you have a drink containing alcohol: monthly or less How many standard drinks containing alcohol do you have on a typical day: 1 or 2 How often do you have six or more drinks on one occasion: Never AUDIT-C Alcohol total score: 1 Non-prescribed substance use: marijuana (any form) Non-prescribed substance use details: CBD/THC- vaping or gummies Caffeine: No service: No Exam Narrative: Exam Narrative: Objective temperature 99? In general the patient is alert [id number] There is some knee swelling that is diffuse, some increased warmth on the medial aspect of the knee area with some mild redness discoloration also over the calf and medial ankle. She has a negative Homans sign, she has no marked effusion in the knee to palpation. No ascending cellulitic changes noted. Const: Vital Signs, click to edit/add: Vital Signs - 24 hr 06/28/22 10:11 06/28/22 12:01 06/28/22 12:02 Temperature 99.0 F Pulse Rate 79 79 Pulse Rate [Left P ulse Oximeter] 90 Respiratory Rate 20 Blood Pressure 135/76 Blood Pressure [Ri ght Upper Arm] 142/103 H Pulse Oximetry 98 100 100 Oxygen Delivery Me thod Room Air Course Vital Signs Vital signs: Initial Vital Signs Temperature 99.0 F 06/28/22 10:11 Temperature Source Temporal Artery Scan 06/28/22 10:11 Pulse Rate 90 06/28/22 10:11 Respiratory Rate 20 06/28/22 10:11 Blood Pressure 142/103 H 06/28/22 10:11 Blood Pressure Mean 116 06/28/22 10:11 Blood Pressure Position Sitting 06/28/22 10:11 Pulse Oximetry 98 06/28/22 10:11 Oxygen Delivery Method 06/28/22 10:11 Vital Signs Temperature 99.0 F 06/28/22 10:11 Pulse Rate 90 06/28/22 10:11 Respiratory Rate 20 06/28/22 10:11 Blood Pressure 142/103 H 06/28/22 10:11 Pulse Oximetry 98 06/28/22 10:11 Oxygen Delivery Method 06/28/22 10:11 Temperature 99.0 F 06/28/22 10:11 Pulse Rate 79 06/28/22 12:02 Respiratory Rate 20 06/28/22 10:11 Blood Pressure 135/76 06/28/22 12:01 Pulse Oximetry 100 06/28/22 12:02 Oxygen Delivery Method 06/28/22 10:11 Medical Decision Making MDM Narrative Medical decision making narrative: The patient is diabetic in about 3 weeks after total knee replacement on the left, now with evidence of probable cellulitis in the left lower extremity. Need to rule out DVT. Will get an ultrasound of the left lower extremity. Will also get an x-ray of the knee. Will check blood work, give IV Ancef, IV Dilaudid. Disposition pending findings possible ortho consult. Addendum: The Doppler scan is negative for clot, x-ray of the knee by my review looks in good position the rib total knee arthroplasty, and lab studies look reassuring. Will discharge home with a lot of for pain, light activity, warm pack to the knee and leg, Keflex 500 q.i.d. x5 days, ortho appointment in 24-48 hours. Return to ED sooner problems or concerns Lab Data Labs: Lab Results 06/28/22 06/28/22 Range/Units 10:50 10:50 WBC 9.03 (4.50-11.00) K/uL RBC 4.42 (4.00-5.20) m/uL Hgb 12.9 (12.0-16.0) gm/dL Hct 39.2 (33.0-51.0) % MCV 89 (80-100) fL MCH 29 (26-34) pg MCHC 33 (32-36) gm/dL RDW Coeff of Eddie 13.8 (11.5-15.5) % Plt Count 236 (140-440) K/uL Neut % (Auto) 87.2 H (42.0-72.0) % Lymph % (Auto) 5.1 L (20-44) % [place] % (Auto) 6.8 (0.0-11.0) % Eos % (Auto) 0.6 (0.0-7.0) % Baso % (Auto) 0.2 (0.0-3.0) % Neut # (Auto) 7.90 H (1.7-7.0) K/uL Lymph # (Auto) 0.50 L (0.90-2.90) K/uL [place] # (Auto) 0.60 (0.00-0.90) K/UL Eos # (Auto) 0.05 (0.00-0.50) K/uL Baso # (Auto) 0.02 (0.00-0.30) K/uL Abs Immat Gran (auto) 0.01 (0.00-0.30) K/uL Imm/Tot Granulo (auto) 0.1 % Sodium 138 (135-149) mmol/L Potassium 4.1 (3.6-5.1) mmol/L Chloride 102 (96-114) mmol/L Carbon Dioxide 28 (20-32) mmol/L BUN 20 (7-30) mg/dL Creatinine 0.6 (0.5-1.5) mg/dL Estimated Creat Clear 90.84 Estimated GFR 103 ml/min Glucose 140 H (60-115) mg/dL Calcium 9.2 (8.4-10.6) mg/dL C-Reactive Protein 3.2 H (0.5-1.0) mg/dL Discharge Plan Discharge Clinical Impression: Cellulitis of left leg Patient Disposition: Home w/ Parent or Adult Condition: Stable Additional Instructions: Light activity, limited weight-bearing, crutches as needed. Keflex 500 q.i.d. x5 days, warm pack to the leg as needed. Orthopedic followup within next 2 days. Return to ED sooner problems or concerns. Will send her home with a few Dilaudid medicines due to her multiple allergies and painful. Activity Level: Light activity Discharge Diet: Regular Prescriptions: New hydromorphone [Dilaudid] 2 mg tablet 2 mg PO Q6H Qty: 10 0RF cephalexin 500 mg capsule 500 mg PO QID Qty: 20 0RF No Action hydromorphone 2 mg tablet 2 mg PO Q6H MDD 4 tabs per day PRN (Reason: pain) Qty: 28 0RF Rx Instructions: Minimize. Discontinue as soon as possible fluticasone propionate 50 mcg/actuation spray,suspension 2 spray intranasal DAILY PRN gabapentin 300 mg capsule 300 - 600 mg PO BID Rx Instructions: 300 MG IN AM 600 MG IN PM levothyroxine 137 mcg tablet 137 mcg PO DAILY multivitamin with iron Tablet 1 tab PO DAILY celecoxib [Celebrex] 200 mg capsule 200 mg PO BID Ozempic 0.25 mg or 0.5 mg(2 mg/1.5 mL) pen injector 0.5 mg SUBCUT .WEEKLY aspirin [Aspirin Childrens] 81 mg tablet,chewable 81 mg PO BID 30 Days Qty: 60 0RF acetaminophen 500 mg capsule 500 - 1,000 mg PO Q6H MDD 4000mg per day PRN (Reason: pain) Qty: 100 0RF sennosides [Senna Lax] 8.6 mg Tablet 17.2 mg PO BID PRN (Reason: constipation) Qty: 100 0RF Follow Up/Referrals: Ilda Pozo MD [Primary Care Provider] - Stand Alone Forms: [facility] Info Instructions
[2022-06-28] MEDS: HYDROmorphone 0.5 mg/0.5 ml inj 1 MG IVP (10:55)
[2022-06-28 10:56] LABS: Basophils Absolute Auto 0.02 K/uL (0.00-0.30); Basophils Percent Auto 0.2 % (0.0-3.0); Eosinophils Absolute Auto 0.05 K/uL (0.00-0.50); Eosinophils Percent Auto 0.6 % (0.0-7.0); Hematocrit 39.2 % (33.0-51.0); Hemoglobin* 12.9 gm/dL (12.0-16.0); Immature Granulocytes Abs Auto 0.01 K/uL (0.00-0.30); Immature Granulocytes Pct Auto 0.1 %; Lymphocytes Percent Auto 5.1 % (20-44); Mean Corpuscular HGB Conc 33 gm/dL (32-36); Mean Corpuscular Hemoglobin 29 pg (26-34); Mean Corpuscular Volume 89 fL (80-100); Monocytes Percent Auto 6.8 % (0.0-11.0); Neutrophils Percent Auto 87.2 % (42.0-72.0); Platelet Count* 236 K/uL (140-440); RDW Coefficient of Variation % 13.8 % (11.5-15.5); Red Blood Count 4.42 m/uL (4.00-5.20); White Blood Count* 9.03 K/uL (4.50-11.00)
[2022-06-28] MEDS: ONDANSETRON 2 MG/ML inj 4 MG IVP (10:57)
[2022-06-28 11:02] LABS: Slide Review Reflex No
--- NOTE | 2022-06-28 11:05 | PC.NURSE ---
sp02 88% after dilaudid, O2 applied at 2lpm via NC and now 100%
[2022-06-28 11:09] LABS: Chloride* 102 mmol/L (96-114); Sodium* 138 mmol/L (135-149)
[2022-06-28 11:10] LABS: Potassium* 4.1 mmol/L (3.6-5.1)
[2022-06-28 11:12] LABS: Creatinine* 0.6 mg/dL (0.5-1.5); Est. Creatinine Clearance* 90.84; Estimated Glomerular Filt Rate 103 ml/min
[2022-06-28 11:13] LABS: Blood Urea Nitrogen* 20 mg/dL (7-30); Calcium* 9.2 mg/dL (8.4-10.6); Carbon Dioxide* 28 mmol/L (20-32); Glucose* 140 mg/dL (60-115)
[2022-06-28 11:16] LABS: C Reactive Protein* 3.2 mg/dL (0.5-1.0)
[2022-06-28] MEDS: CEFAZOLIN 2 GM in 0.9 % SODIUM CHLORIDE Mini-bag 100 ML IVPB (11:25)
[2022-06-28 12:01] VITALS: BP 135/76; PULSE 79; O2SAT 100
[2022-06-28 12:02] VITALS: PULSE 79; O2SAT 100
[2022-06-28] MEDS: HYDROmorphone 0.5 mg/0.5 ml inj IVP (12:10)
== END 2022-06-28 12:20 | disposition home or self-care (01) ==
PROVIDERS: Emergency Provider Family Medicine; PCP Family Medicine
DX: L03.116 Cellulitis of left lower limb (principal)
CPT/HCPCS: 36415; 73562; 80048; 85025; 86140; 87040; 87186; 93971; 96365; 96375; 99283; 99284; 99285; J0690; J1170; J2405

== ENCOUNTER 2022-06-29 11:26 | Inpatient (IN) | payer OTHER, SELFPAY ==
[2022-06-29] VITALS (8 sets, daily range): BP systolic 104–131; BP diastolic 49–74; PULSE 69–81; RESP 16–18; TEMP 36.6; O2SAT 94–98; BMI 39.6
--- NOTE | 2022-06-29 12:33 | ED_ITS ---
HPI - General Adult General Chief complaint: Unspecified Complaint, Adult <Tana Dunne MD - Last Filed: 06/29/22 14:53> Stated complaint: Knee infection, needs medication <Tana Dunne MD - Last Filed: 06/29/22 14:53> Time Seen by Provider: 06/29/22 12:04 <Tana Dunne MD - Last Filed: 06/29/22 14:53> Source: patient <Tana Dunne MD - Last Filed: 06/29/22 14:53> Mode of arrival: ambulatory <Tana Dunne MD - Last Filed: 06/29/22 14:53> Limitations: no limitations <Tana Dunne MD - Last Filed: 06/29/22 14:53> History of Present Illness HPI narrative: 57-year-old female coming in today at the request of Orthopedics for a positive blood culture & potential joint infection. Patient is a 57-year-old female 3 weeks status post a left knee replacement who presented to the ER recently with left lower extremity cellulitis. Blood cultures flag positive today for cocci in clusters. She denies systemic symptoms. <Tana Dunne MD - Last Filed: 06/29/22 14:53> Related Data Home medications: Home Medications Medication Instructions Recorded Confirmed fluticasone propionate 50 2 spray intranasal DAILY PRN 02/18/22 06/29/22 mcg/actuation nasal spray,suspension gabapentin 300 mg capsule 300 - 600 mg PO BID 02/18/22 06/29/22 levothyroxine 137 mcg tablet 137 mcg PO DAILY 02/18/22 06/29/22 multivitamin with iron 1 tab PO DAILY 02/18/22 06/29/22 celecoxib 200 mg capsule (Celebrex) 200 mg PO BID 06/09/22 06/29/22 semaglutide 0.25 mg or 0.5 mg (2 0.5 mg subcut .WEEKLY 06/09/22 06/29/22 mg/1.5 mL) subcutaneous pen injector (Ozempic) hydromorphone 2 mg tablet 2 mg PO Q6H PRN pain 06/29/22 06/29/22 (Dilaudid) Previous Rx's Medication Instructions Recorded acetaminophen 500 mg capsule 500 - 1,000 mg PO Q6H PRN pain 06/09/22 #100 caps aspirin 81 mg chewable tablet 81 mg PO BID for DVT prophylaxis 06/09/22 (Aspirin Childrens) 30 days #60 tabs sennosides 8.6 mg tablet (Senna 17.2 mg PO BID PRN constipation 06/09/22 Lax) #100 tabs <Tana Dunne MD - Last Filed: 06/29/22 14:53> Allergies/adverse reactions: Allergies Allergy/AdvReac Type Severity Reaction Status Date / Time codeine Allergy Severe STATES Verified 06/17/22 09:01 THROAT TIGHTENS, JAW SWELLS latex Allergy Intermediate STATES Verified 06/17/22 09:01 SKIN IRRITATION, RASH penicillin V Allergy Intermediate STATES Verified 06/17/22 09:01 CONTRACTED C DIF adhesive Allergy Unknown Verified 06/17/22 09:01 hydrocodone Allergy Unknown ITCHING, Verified 06/17/22 09:01 RASH oxycodone Allergy Unknown ITCHING, Verified 06/17/22 09:01 RASH nutrasweet Allergy Severe Migraine Uncoded 06/17/22 09:01 Clavulanate Allergy Mild States Uncoded 06/17/22 09:01 Extreme Diarrhea most antibiotics Allergy Unknown Uncoded 06/17/22 09:01 <Tana Dunne MD - Last Filed: 06/29/22 14:53> Review of Systems Status of ROS: Reports: 10 or more systems reviewed and unremarkable except as noted in History and below <Tana Dunne MD - Last Filed: 06/29/22 14:53> [facility] Medical History: Medical History (Updated 06/29/22 @ 17:10 by Thierno Fernandes MD) Arthritis of knee Contusion Cystitis 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 Degenerative tear of lateral meniscus of left knee Degenerative tear of left medial meniscus Diabetic neuropathy Herniated lumbar intervertebral disc History of Clostridium difficile infection Hyperlipidemia Hypothyroidism Laceration of scalp Osteoarthritis of left knee Positive blood culture Sciatica Type 2 diabetes mellitus <Tana Dunne MD - Last Filed: 06/29/22 14:53> Surgical History: Surgical History (Updated 06/29/22 @ 17:07 by Thierno Fernandes MD) History of section History of hemorrhoidectomy History of rectal sphincterotomy Status post knee replacement Status post total right knee replacement (06/09/22) <Tana Dunne MD - Last Filed: 06/29/22 14:53> Family History: Family History Father Lung cancer Mother Parkinsons <Tana Dunne MD - Last Filed: 06/29/22 14:53> Social History: Social History (Updated 06/29/22 @ 17:04 by Thierno Fernandes MD) Narrative: She does not smoke. She rarely drinks alcohol. She lives in [place] with her . He he is working at a new job in [place]. She reports that would be difficult for him to bring her to the hospital for outpatient antibiotics. Smoking Status: Never smoker Second hand tobacco smoke exposure: No How often do you have a drink containing alcohol: monthly or less How many standard drinks containing alcohol do you have on a typical day: 1 or 2 How often do you have six or more drinks on one occasion: Never AUDIT-C Alcohol total score: 1 Non-prescribed substance use: marijuana (any form) Non-prescribed substance use details: CBD/THC- vaping or gummies Caffeine: No service: No <Tana Dunne MD - Last Filed: 06/29/22 14:53> Exam Narrative: Exam Narrative: Overweight patient in no acute distress. Alert and oriented. Answers questions appropriately. Mood and affect are appropriate. Thoughts are goal oriented and rational. No tangential or magical thinking noted. Patient speaks in full sentences without needing to catch her breath. HEENT: Normocephalic atraumatic. Pupils are equally round reactive to light. Extraocular muscles are intact. Conjunctivae are moist without any icterus noted. Moist mucous membranes. Cardiovascular: Heart is regular rate and rhythm. Lungs: Clear to auscultation bilaterally no wheezes rhonchi or rales are appreciated. Extremities: Left lower extremity has obvious cellulitis surrounding the ankle and calf area circumferentially. It does creep up the lower leg with does not reach the knee. However she has papular rash around the incision of the knee and that rash does go down the leg as well. She has no significant tenderness at the knee joint itself. Most of her tenderness is around the lower leg and ankle. Her knee joint however does feel more swollen than has since surgery. <Tana Dunne MD - Last Filed: 06/29/22 14:53> Const: Vital Signs, click to edit/add: Vital Signs - 24 hr 06/29/22 11:59 06/29/22 16:23 06/29/22 17:30 Temperature 97.9 F 97.9 F Pulse Rate [Right Pulse Oximeter] 72 72 Respiratory Rate 18 16 Blood Pressure [Ri ght Upper Arm] 131/72 123/74 108/66 Pulse Oximetry 96 96 Oxygen Delivery Me thod Room Air Room Air 06/29/22 17:45 06/29/22 18:00 06/29/22 18:15 Temperature Pulse Rate [Right Pulse Oximeter] 81 70 Respiratory Rate Blood Pressure [Ri ght Upper Arm] 120/64 106/65 104/60 Pulse Oximetry 94 96 Oxygen Delivery Me thod Room Air Room Air 06/29/22 20:40 06/29/22 23:31 06/30/22 01:27 Temperature Pulse Rate [Right Pulse Oximeter] 69 77 76 Respiratory Rate Blood Pressure [Ri ght Upper Arm] 105/49 L 120/70 Pulse Oximetry 98 98 96 Oxygen Delivery Me thod Room Air Room Air Room Air <Tana Dunne MD - Last Filed: 06/29/22 14:53> Vital Signs, click to edit/add: Vital Signs - 24 hr 06/29/22 11:59 06/29/22 16:23 06/29/22 17:30 Temperature 97.9 F 97.9 F Pulse Rate [Right Pulse Oximeter] 72 72 Respiratory Rate 18 16 Blood Pressure [Ri ght Upper Arm] 131/72 123/74 108/66 Pulse Oximetry 96 96 Oxygen Delivery Me thod Room Air Room Air 06/29/22 17:45 06/29/22 18:00 06/29/22 18:15 Temperature Pulse Rate [Right Pulse Oximeter] 81 70 Respiratory Rate Blood Pressure [Ri ght Upper Arm] 120/64 106/65 104/60 Pulse Oximetry 94 96 Oxygen Delivery Me thod Room Air Room Air 06/29/22 20:40 06/29/22 23:31 06/30/22 01:27 Temperature Pulse Rate [Right Pulse Oximeter] 69 77 76 Respiratory Rate Blood Pressure [Ri ght Upper Arm] 105/49 L 120/70 Pulse Oximetry 98 98 96 Oxygen Delivery Me thod Room Air Room Air Room Air <Fran Corrales MD - Last Filed: 06/30/22 02:18> Course Course Hospital Course: I did consult with orthopedic surgery: Dr. Verdugo does not feel that this is a joint infection. Also consulted with Dr. Fernandes who recommends IV vancomycin until cultures and sensitivities have returned. We discussed outpatient IV therapy for this patient, however she does not drive and her work so she has no way to get to the hospital from her home twice per day. Therefore patient will board in the ER as we have no available hospital beds. She will receive vancomycin b.i.d.. We will repeat blood cultures today and tomorrow, CBC will also be done tomorrow. Treatment will be tailored pending culture results. <Tana Dunne MD - Last Filed: 06/29/22 14:53> Reevaluation(s) Reevaluation #1: Was asked by nursing to evaluate as was feeling a little bit itchy particularly over face/head. Has been receiving vancomycin. Faint erythema but has been scratching. No vital instability. Was just given oral Dilaudid though 5-10 minutes ago only. Will dose with diphenhydramine. Continue with vanco at this time. -DR <Fran Corrales MD - Last Filed: 06/30/22 02:18> Time: 17:44 <Fran Corrales MD - Last Filed: 06/30/22 02:18> Reevaluation #2: Has needed further dosing for pain. Was feeling some spasming across lower left knee as well as an increase in the pain in the left lower leg, the area of cellulitis. Was given usual 2 mg of Dilaudid. She remains vitally well. There has been no further progression of rash or itch. I have discussed convenience of her stay here in very busy ED. We actually did call to [place], given that she lives there, to see if it might be more convenient for her to receive outpatient infusions through their hospital. They were willing to try to make this work out but given the fact that she has no one at home, Ms. Garcia does not feel supported nor that she could coordinate transportation required to go to and from the hospital. Strongly preferred to stay here at this facility. I did review blood cultures with the lab. At this point is 1 of 4 (1 anaerobic bottle) that has gone positive. Contaminant? -DR <Fran Corrales MD - Last Filed: 06/30/22 02:18> Time: 23:44 <Fran Corrales MD - Last Filed: 06/30/22 02:18> Reevaluation #3: Given social challenges related to this patient, difficulty in pain management and challenges of ER boarding, now with inpatient beds, I think acceptable course of action will be to now admit/transfer to the floor. Admitting for cellulitis. Final blood cultures are pending. Bacteremia unclear. <Fran Corrales MD - Last Filed: 06/30/22 02:18> Time: 01:57 <Fran Corrales MD - Last Filed: 06/30/22 02:18> Vital Signs Vital signs: Initial Vital Signs Temperature 97.9 F 06/29/22 11:59 Temperature Source Temporal Artery Scan 06/29/22 11:59 Pulse Rate 72 06/29/22 11:59 Respiratory Rate 18 06/29/22 11:59 Blood Pressure 131/72 06/29/22 11:59 Blood Pressure Mean 91 06/29/22 11:59 Blood Pressure Position Sitting 06/29/22 11:59 Pulse Oximetry 96 06/29/22 11:59 Oxygen Delivery Method 06/29/22 11:59 Vital Signs Temperature 97.9 F 06/29/22 11:59 Pulse Rate 72 06/29/22 11:59 Respiratory Rate 18 06/29/22 11:59 Blood Pressure 131/72 06/29/22 11:59 Pulse Oximetry 96 06/29/22 11:59 Oxygen Delivery Method 06/29/22 11:59 Temperature 97.9 F 06/29/22 16:23 Pulse Rate 76 06/30/22 01:27 Respiratory Rate 16 06/29/22 16:23 Blood Pressure 120/70 06/29/22 23:31 Pulse Oximetry 96 06/30/22 01:27 Oxygen Delivery Method 06/30/22 01:27 <Tana Dunne MD - Last Filed: 06/29/22 14:53> Initial Vital Signs Temperature 97.9 F 06/29/22 11:59 Temperature Source Temporal Artery Scan 06/29/22 11:59 Pulse Rate 72 06/29/22 11:59 Respiratory Rate 18 06/29/22 11:59 Blood Pressure 131/72 06/29/22 11:59 Blood Pressure Mean 91 06/29/22 11:59 Blood Pressure Position Sitting 06/29/22 11:59 Pulse Oximetry 96 06/29/22 11:59 Oxygen Delivery Method 06/29/22 11:59 Vital Signs Temperature 97.9 F 06/29/22 11:59 Pulse Rate 72 06/29/22 11:59 Respiratory Rate 18 06/29/22 11:59 Blood Pressure 131/72 06/29/22 11:59 Pulse Oximetry 96 06/29/22 11:59 Oxygen Delivery Method 06/29/22 11:59 Temperature 97.9 F 06/29/22 16:23 Pulse Rate 76 06/30/22 01:27 Respiratory Rate 16 06/29/22 16:23 Blood Pressure 120/70 06/29/22 23:31 Pulse Oximetry 96 06/30/22 01:27 Oxygen Delivery Method 06/30/22 01:27 <Fran Corrales MD - Last Filed: 06/30/22 02:18> Medical Decision Making MDM Narrative Medical decision making narrative: 57-year-old female with cellulitis of the left lower extremity, blood cultures flag positive for cocci in clusters. Plan per above. Care transferred to oncoming physician. <Tana Dunne MD - Last Filed: 06/29/22 14:53> Medical Records Medical records reviewed: Yes I reviewed the patient's medical records <Tana Dunne MD - Last Filed: 06/29/22 14:53> Lab Data Lab results reviewed: Yes I reviewed the patient's lab results <Tana Dunne MD - Last Filed: 06/29/22 14:53> Labs: Lab Results 06/29/22 Range/Units 13:17 SARS-CoV-2 (PCR) Negative SARS-CoV-2 (Negative) Influenza Type A (PCR) Negative PCR FLU A (Negative) Influenza Type B (PCR) Negative PCR FLU B (Negative) <Tana Dunne MD - Last Filed: 06/29/22 14:53> Lab Results 06/29/22 Range/Units 13:17 SARS-CoV-2 (PCR) Negative SARS-CoV-2 (Negative) Influenza Type A (PCR) Negative PCR FLU A (Negative) Influenza Type B (PCR) Negative PCR FLU B (Negative) <Fran Corrales MD - Last Filed: 06/30/22 02:18> Discharge Plan Discharge Clinical Impression: Cellulitis <Tana Dunne MD - Last Filed: 06/29/22 14:53> Patient Disposition: Admitted As Inpatient <Tana Dunne MD - Last Filed: 06/29/22 14:53> Condition: Stable <Tana Dunne MD - Last Filed: 06/29/22 14:53>
--- NOTE | 2022-06-29 14:19 | P.ORCN_ITS ---
History of Present Illness HPI Date Seen: 06/29/22 Chief complaint: Knee infection, needs medication Narrative: Catalina is a pleasant 57-year-old female. She is known to the Orthopedic service having undergone a left TKA 06/09/2022 by my partner, Dr. Andrea Bright. She reports that her recovery has been as expected, except that she has experienced some redness about her left anterior leg (mostly along her juárez). This became red, swollen, hot, and painful in the last few days. Progressively getting worse. She present to the emergency room yesterday (06/28/2022) were she was reportedly given IV Ancef and then discharged on oral antibiotics. Blood cultures were obtained at that time. She was notified that the cultures are positive, and encouraged to return to the ED today. Upon her return today, there is acknowledgement that she underwent a recent TKA on this ipsilateral side. Orthopedics was consulted to evaluate the knee as there was some redness around this as well. She reports a temperature of 101? at home. Otherwise, no shortness of breath. No chest pain. No altered mental status changes. She reports her knee range of motion was 0-75 degrees just prior to this redness developing in the last few days. Review of Systems Narrative: As above. Otherwise, remaining 10 point review of systems otherwise negative. 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 She rarely drinks alcohol. Smoking Status: Never smoker Second hand tobacco smoke exposure: No How often do you have a drink containing alcohol: monthly or less How many standard drinks containing alcohol do you have on a typical day: 1 or 2 How often do you have six or more drinks on one occasion: Never AUDIT-C Alcohol total score: 1 Non-prescribed substance use: marijuana (any form) Non-prescribed substance use details: CBD/THC- vaping or gummies Caffeine: No service: No Meds Home Medications and Allergies Home Medications Medication Instructions Recorded Confirmed Type fluticasone propionate 50 2 spray intranasal DAILY PRN 02/18/22 06/17/22 History mcg/actuation nasal spray,suspension gabapentin 300 mg capsule 300 - 600 mg PO BID 02/18/22 06/17/22 History levothyroxine 137 mcg tablet 137 mcg PO DAILY 02/18/22 06/17/22 History multivitamin with iron 1 tab PO DAILY 02/18/22 06/17/22 History celecoxib 200 mg capsule (Celebrex) 200 mg PO BID 06/09/22 06/17/22 History semaglutide 0.25 mg or 0.5 mg (2 0.5 mg subcut .WEEKLY 06/09/22 06/17/22 History mg/1.5 mL) subcutaneous pen injector (Ozempic) Allergies Allergy/AdvReac Type Severity Reaction Status Date / Time codeine Allergy Severe STATES Verified 06/17/22 09:01 THROAT TIGHTENS, JAW SWELLS latex Allergy Intermediate STATES Verified 06/17/22 09:01 SKIN IRRITATION, RASH penicillin V Allergy Intermediate STATES Verified 06/17/22 09:01 CONTRACTED C DIF adhesive Allergy Unknown Verified 06/17/22 09:01 hydrocodone Allergy Unknown ITCHING, Verified 06/17/22 09:01 RASH oxycodone Allergy Unknown ITCHING, Verified 06/17/22 09:01 RASH nutrasweet Allergy Severe Migraine Uncoded 06/17/22 09:01 Clavulanate Allergy Mild States Uncoded 06/17/22 09:01 Extreme Diarrhea most antibiotics Allergy Unknown Uncoded 06/17/22 09:01 Ortho Exam Narrative Exam Narrative: Well-developed, well-nourished 57-year-old female in no acute distress. She is solo in the room today. She provides all the history. She is alert and oriented x3. No acute distress. Nonlabored breathing. Mood appropriate, affect normal. Memory intact both remote and recent events regarding today's presenting complaint. The left lower extremity exam shows prior TKA scar from 06/09/2022 appears to be healing appropriately. No wound dehiscence. No clear erythema immediately around the incision. There are some punctate regions that appear to be more generalized inflammation around the incision area. There is a 3 cm erythematous region immediately lateral to the incision overlying the patella. This erythema expands little bit further laterally, but is non confluent. A majority erythema stretches from the proximal 1/3 of the leg to the distal 1/3 of the leg. Primarily over the anterior leg but does wrap around the medial and slightly lateral distal 1/3 of the leg. This is distinctly separate from the TKA incision and does not appear to communicate. Also this is separate from the mild erythema on the lateral side of the incision. Knee ROM shows 0-45 degrees pain free. She has some stretching at deeper flexion. Her knee feels stable to varus and valgus stress at 0 and 30? otherwise. She is able to do an active straight leg raise. Left ankle exam shows smooth range of motion both actively and passively without crepitus. No limitation in range of motion. Generalized swelling is seen from the knee distal fairly typical of post TKA findings. However, there is slightly more swelling around the ankle and foot than would be expected likely related to the cellulitis seen above. Neurologic intact distally in superficial and deep peroneal as well as plantar distribution. 2+ DP and PT pulse. Const Vital Signs, click to edit/add: Vital Signs - 24 hr 06/29/22 11:59 Temperature 97.9 F Pulse Rate [Right Pulse Oximeter] 72 Respiratory Rate 18 Blood Pressure [Right Upper Arm] 131/72 Pulse Oximetry 96 Oxygen Delivery Method Room Air Results Diagnostic results Additional Comments: Two views left knee from [facility] that were ordered by different provider but reviewed by me from 06/28/2022 show left TKA components in appropriate, stable position. No evidence of loosening or failure. No significant effusions. Expected amount of soft tissue swelling given the patient's body habitus. No acute fractures appreciated. Assessment and Plan Assessment and plan (1) Cellulitis of left leg: Status: Acute (2) Status post left knee replacement: Problem comment: 06/09/2022 Status: Acute Plan Indeed I believe the patient is experiencing/battling a left leg cellulitis. I do think that she would benefit from IV antibiotics. While she did receive a dose yesterday in the emergency room and has been on oral antibiotics overnight, her erythema seems to be mildly expanding. Therefore, IV antibiotics are prudent. I did communicate with Dr. Fernandes, hospitalist. We both agree that attempting IV antibiotics on an outpatient basis is prudent. I think the patient can be mobile and tolerate this. In the meantime, the patient can continue to ice, modify activities, but weightbear as tolerated. She can continue her physical therapy for the left TKA protocol as well. I did communicate with Dr. Dunne here in the emergency department. I have shared these similar thoughts and my communication with Dr. Fernandes as well. Finally, I did communicate with Dr. Bright, orthopedics. I shared a photo with the patient's permission of the leg cellulitis. This would be valuable to continue to track as time goes on.
[2022-06-29 14:22] LABS: PCR FLU A Negative PCR FLU A (Negative); PCR FLU B Negative PCR FLU B (Negative)
[2022-06-29 14:24] LABS: SARS PCR* Negative SARS-CoV-2 (Negative)
[2022-06-29] MEDS: ACETAMINOPHEN 500 MG TABLET 1000 MG PO (14:39)
--- NOTE | 2022-06-29 17:01 | PM.IMHP1 ---
Hospitalist- H&P: HPI History of Present Illness Date Seen: 06/29/22 Chief complaint: Knee infection, needs medication Narrative: Carolina aGrcia is a 57 year old female postop uncomplicated left total knee arthroplasty almost 3 weeks ago who presents with a few days of left calf discomfort and increasing redness. Yesterday she spiked a fever of about 101.7?. She was seen in the emergency room and diagnosed with a cellulitis of her left calf. She had an ultrasound showing no DVT. She was discharged on Keflex. She continued to have pain, swelling, redness and fever and returned to the emergency department today when 1 of her blood cultures from yesterday turned positive with Gram-positive cocci in clusters. Review of Systems Narrative: She reports recovery from surgery is been unremarkable until last few days when she started to have a vague discomfort in her left calf. There has not been any new injury. She has been undergoing routine physical therapy with good progress. 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 Degenerative tear of lateral meniscus of left knee Degenerative tear of left medial meniscus Diabetic neuropathy Herniated lumbar intervertebral disc History of Clostridium difficile infection Hyperlipidemia Hypothyroidism Laceration of scalp Osteoarthritis of left knee Positive blood culture Sciatica Type 2 diabetes mellitus Surgical History (Updated 06/29/22 @ 17:07 by Thierno Fernandes MD) History of section History of hemorrhoidectomy History of rectal sphincterotomy Status post knee replacement Status post total right knee replacement (06/09/22) Family History Father Lung cancer Mother Parkinsons Social History (Updated 06/29/22 @ 17:04 by Thierno Fernandes MD) Narrative: She does not smoke. She rarely drinks alcohol. She lives in [place] with her . He he is working at a new job in [place]. She reports that would be difficult for him to bring her to the hospital for outpatient antibiotics. Smoking Status: Never smoker Second hand tobacco smoke exposure: No How often do you have a drink containing alcohol: monthly or less How many standard drinks containing alcohol do you have on a typical day: 1 or 2 How often do you have six or more drinks on one occasion: Never AUDIT-C Alcohol total score: 1 Non-prescribed substance use: marijuana (any form) Non-prescribed substance use details: CBD/THC- vaping or gummies Caffeine: No service: No Meds Home Medications and Allergies Home Medications Medication Instructions Recorded Confirmed Type fluticasone propionate 50 2 spray intranasal DAILY PRN 02/18/22 06/29/22 History mcg/actuation nasal spray,suspension gabapentin 300 mg capsule 300 - 600 mg PO BID 02/18/22 06/29/22 History levothyroxine 137 mcg tablet 137 mcg PO DAILY 02/18/22 06/29/22 History multivitamin with iron 1 tab PO DAILY 02/18/22 06/29/22 History celecoxib 200 mg capsule (Celebrex) 200 mg PO BID 06/09/22 06/29/22 History semaglutide 0.25 mg or 0.5 mg (2 0.5 mg subcut .WEEKLY 06/09/22 06/29/22 History mg/1.5 mL) subcutaneous pen injector (Ozempic) hydromorphone 2 mg tablet 2 mg PO Q6H PRN pain 06/29/22 06/29/22 History (Dilaudid) Allergies Allergy/AdvReac Type Severity Reaction Status Date / Time codeine Allergy Severe STATES Verified 06/17/22 09:01 THROAT TIGHTENS, JAW SWELLS latex Allergy Intermediate STATES Verified 06/17/22 09:01 SKIN IRRITATION, RASH penicillin V Allergy Intermediate STATES Verified 06/17/22 09:01 CONTRACTED C DIF adhesive Allergy Unknown Verified 06/17/22 09:01 hydrocodone Allergy Unknown ITCHING, Verified 06/17/22 09:01 RASH oxycodone Allergy Unknown ITCHING, Verified 06/17/22 09:01 RASH nutrasweet Allergy Severe Migraine Uncoded 06/17/22 09:01 Clavulanate Allergy Mild States Uncoded 06/17/22 09:01 Extreme Diarrhea most antibiotics Allergy Unknown Uncoded 06/17/22 09:01 Exam Narrative: Exam Narrative: She is alert and appears in no distress. Speech is normal. Oropharynx is normal. Neck is supple without mass or adenopathy. Respirations are clear to auscultation. Breathing is unlabored. Cardiovascular: S1, S2, regular rate and rhythm. No murmur gallop or rub. Abdomen: Bowel sounds active. Abdomen is soft without tenderness or mass. Lower extremities are examined. Her incision over her left knee is well healed. No significant incisional erythema drainage or tenderness. No opening in the wound. She has a few blotches of erythema lateral to that incision. She has blotchy erythema over the entire left calf extending from just below the tibial tubercle down to the medial ankle. Within this are some erythematous papules. No pustules and no ulcerations or draining wounds. She has mild edema in the left compared to the right. Pedal pulses strong sensation and strength in the ankle is normal. Right lower extremity is also normal. Const: Vital Signs, click to edit/add: Vital Signs - 24 hr 06/29/22 11:59 06/29/22 16:23 Temperature 97.9 F 97.9 F Pulse Rate [Right Pulse Oximeter] 72 72 Respiratory Rate 18 16 Blood Pressure [Ri ght Upper Arm] 131/72 123/74 Pulse Oximetry 96 96 Oxygen Delivery Me thod Room Air Room Air Assessment and Plan Assessment and plan (1) Status post left knee replacement: Problem comment: 06/09/2022. Uncomplicated procedure. Status: Acute (2) Cellulitis of left leg: Problem comment: Cellulitis appears to involve the left calf but not the left knee or the left ankle. No obvious synovitis. Ultrasound negative. Status: Acute (3) Positive blood culture: Problem comment: Postoperative infection with positive blood culture will be treated with IV vancomycin pending identification and sensitivity. Pharmacy to assist with dosing. Currently no beds available inpatient so patient will board in the emergency department pending available in patient bed or alternatively outpatient IV antibiotics. Likely will require 2 days to get identification and sensitivities. At that time decision will need to be made about whether more investigation for bacteremia is required or whether this can be treated as a simple cellulitis. Status: Acute Plan IV antibiotics pending culture and sensitivity. Total time spent today is 75 minutes, 50 minutes in coordination of care with other providers, ED nursing, physicians, pharmacy and patient about plan of care.
[2022-06-29] MEDS: HYDROmorphone 2 MG TABLET PO ×2 (17:31→21:20)
--- NOTE | 2022-06-29 17:40 | ED.NURSE ---
Pt reporting some itching on forehead and scalp. Forehead/scalp areas do appear reddened in appearance but pt has been itching those areas. Vitals remain stable. MD notified. MD in room to examine pt. Guillermina ordered by .
[2022-06-29] MEDS: diphenhydrAMINE 50 MG/ML inj 25 MG IVP (18:05)
--- NOTE | 2022-06-29 18:25 | ED.NURSE ---
Pt reports itching is relieved, pain down from 8/10 to 4/10 now.
--- NOTE | 2022-06-29 23:50 | ED.NURSE ---
Pt complaining of discomfort with IV in R wrist. Unable to flush IV, pt reported pain when database report writer attempted to flush IV. MD updated. IV DC'd, catheter intact. New IV started in pt R forearm.
[2022-06-30] VITALS (7 sets, daily range): BP systolic 126–146; BP diastolic 58–86; PULSE 71–88; RESP 18–20; TEMP 36.4–36.8; O2SAT 96–99; BMI 40.3
[2022-06-30] MEDS: HYDROmorphone 2 MG TABLET PO ×4 (01:19→19:59)
--- NOTE | 2022-06-30 01:27 | ED.NURSE ---
Pt repositioned to partial Trendelenburg reclining position for comfort. Pt requested pillow be moved from under elevated L leg to underneath L knee. Pillow moved per pt request. Call light within reach.
--- NOTE | 2022-06-30 02:08 | W.PC.EDHO ---
Primary Language: Romansh Preferred Language: Orientation Status: [x] Alert & Oriented [] Slight Confusion [] Known Dx Dementia Transfers By: [x] Assist of 1 [] Assist of 2 [] Lift Active Medications Generic Name Dose Route Start Last Admin Trade Name Kenia PRN Reason Stop Dose Admin Hydromorphone HCl 2 mg 06/30/22 01:16 06/30/22 01:19 Hydromorphone 2 Mg Tablet PO 06/30/22 01:17 2 mg ONCE ONE Administration Discontinued Medications Generic Name Dose Route Start Last Admin Trade Name Kenia PRN Reason Stop Dose Admin Acetaminophen 1,000 mg 06/29/22 14:13 06/29/22 14:39 Acetaminophen 500 Mg Tablet PO 06/29/22 14:14 1,000 mg ONCE ONE Administration Diphenhydramine HCl 25 mg 06/29/22 17:47 06/29/22 18:05 Diphenhydramine 50 Mg/Ml Inj IVP 06/29/22 17:48 25 mg ONCE ONE Administration Hydromorphone HCl 2 mg 06/29/22 17:23 06/29/22 17:31 Hydromorphone 2 Mg Tablet PO 06/29/22 17:24 2 mg ONCE ONE Administration Hydromorphone HCl 2 mg 06/29/22 21:13 06/29/22 21:20 Hydromorphone 2 Mg Tablet PO 06/29/22 21:14 2 mg ONCE ONE Administration Cefazolin Sodium 2 gm/ Sodium 100 mls @ 200 mls/hr 06/29/22 14:00 06/29/22 16:28 Chloride IVPB Not Given Q8H JOSE CARLOS Vancomycin HCl 2,000 mg/ 520 mls @ 260 mls/hr 06/29/22 14:16 06/29/22 19:05 Sodium Chloride IVPB 06/29/22 14:17 Infused ONCE ONE Infusion Protocol Description of Symptoms ED Triage Present Problem seen in ED yesterday for left leg redness. recent Description total knee surgery 06/09. notified today of positive blood cultures. pt was called and recommended to return for admission Female History Patient No Pain Pain Description [Left Leg] Sharp Pain Intensity [Left Leg] 5 Pain Intensity 9 Pain Intensity 9 Pain Intensity 6 Pain Intensity 6 Pain Intensity 6 Pain Intensity 4 Pain Intensity 8 Pain Intensity 8 Pain Intensity 4 Pain Intensity 4 Pain Intensity 4 Pain Intensity 4 Pain Intensity 8 Pain Intensity 8 Pain Intensity 9 Pain Intensity 5 Pain Scale Used [Left Leg] Numeric (1 - 10) Pain Scale Used Numeric (1 - 10) Pain Scale Used Numeric (1 - 10) Pain Scale Used Numeric (1 - 10) Pain Scale Used Numeric (1 - 10) Pain Scale Used Numeric (1 - 10) Pain Scale Used Numeric (1 - 10) Pain Scale Used Numeric (1 - 10) Pain Scale Used Numeric (1 - 10) Pain Scale Used Numeric (1 - 10) Pain Scale Used Numeric (1 - 10) Pain Scale Used Numeric (1 - 10) Pain Scale Used Numeric (1 - 10) Pain Scale Used Numeric (1 - 10) Pain Scale Used Numeric (1 - 10) Pain Scale Used Numeric (1 - 10) Pain Scale Used Numeric (1 - 10) IV Insertion/Site Date of IV Line Insertion [ 06/30/22 Right Forearm] Date of IV Line Insertion [ 06/29/22 Right Hand] Oxygen Administration Pulse Oximetry 96 Pulse Oximetry 98 Pulse Oximetry 98 Pulse Oximetry 96 Pulse Oximetry 94 Pulse Oximetry 96 Pulse Oximetry 96 Oxygen Delivery Method Room Air Oxygen Delivery Method Room Air Oxygen Delivery Method Room Air Oxygen Delivery Method Room Air Oxygen Delivery Method Room Air Oxygen Delivery Method Room Air Oxygen Delivery Method Room Air
--- NOTE | 2022-06-30 02:16 | ED.NURSE ---
Report called to M/S RN.
--- NOTE | 2022-06-30 02:26 | PM.IMPN1 ---
Subjective Date Seen: 06/30/22 Interval history: Chidi Mojicaist Cross Cover Note eHospitalist was contacted by Dr Corrales regarding bed availability for the patient. Case was reviewed briefly. Patient was seen earlier by Dr. Fernandes at which time H&P was completed. Chart reviewed. Pain medications and additional medications and orders placed. Rounding provider to evaluate the patient in the morning. Thank you for including Chidi Jack in the patients care. This service is available for further assistance as requested by your care team by calling [phone]. Exam Const: Vital Signs, click to edit/add: Vital Signs - 24 hr 06/29/22 11:59 06/29/22 16:23 06/29/22 17:30 Temperature 97.9 F 97.9 F Pulse Rate [Right Pulse Oximeter] 72 72 Respiratory Rate 18 16 Blood Pressure [Ri ght Upper Arm] 131/72 123/74 108/66 Pulse Oximetry 96 96 Oxygen Delivery Me thod Room Air Room Air 06/29/22 17:45 06/29/22 18:00 06/29/22 18:15 Temperature Pulse Rate [Right Pulse Oximeter] 81 70 Respiratory Rate Blood Pressure [Ri ght Upper Arm] 120/64 106/65 104/60 Pulse Oximetry 94 96 Oxygen Delivery Me thod Room Air Room Air 06/29/22 20:40 06/29/22 23:31 06/30/22 01:27 Temperature Pulse Rate [Right Pulse Oximeter] 69 77 76 Respiratory Rate Blood Pressure [Ri ght Upper Arm] 105/49 L 120/70 Pulse Oximetry 98 98 96 Oxygen Delivery Me thod Room Air Room Air Room Air Labs Labs: Laboratory Results - last 24 hr 06/29/22 13:17 SARS-CoV-2 (PCR) Negative SARS-CoV-2 Influenza Type A (PCR) Negative PCR FLU A Influenza Type B (PCR) Negative PCR FLU B
[2022-06-30] MEDS: ACETAMINOPHEN 325 MG TABLET 650 MG PO ×4 (03:16→20:02)
--- NOTE | 2022-06-30 05:05 | PC.NURSE ---
patient requests Benadryl to be given with Frieda, call placed to [facility]ist
--- NOTE | 2022-06-30 05:30 | PC.NURSE ---
admit/shift note: patient to floor approx 0245, SBA with walker, LLE warm red and painful. afebrile.
[2022-06-30] MEDS: diphenhydrAMINE 50 MG/ML inj 25 MG IVP (06:51)
[2022-06-30] MEDS: LEVOTHYROXINE 112 MCG TABLET PO (07:40)
[2022-06-30] MEDS: LEVOTHYROXINE 25 MCG TABLET PO (07:40)
[2022-06-30] MEDS: CELECOXIB 200 MG CAPSULE PO ×2 (09:17→19:59)
[2022-06-30] MEDS: MULTIVITAMIN/MINERALS 1 TABLET 1 TAB PO (09:17)
[2022-06-30] MEDS: GABAPENTIN 300 MG CAPSULE PO ×2 (09:17→19:59)
[2022-06-30 09:21] LABS: Basophils Absolute Auto 0.03 K/uL (0.00-0.30); Basophils Percent Auto 0.4 % (0.0-3.0); Eosinophils Absolute Auto 0.09 K/uL (0.00-0.50); Eosinophils Percent Auto 1.3 % (0.0-7.0); Hematocrit 34.9 % (33.0-51.0); Hemoglobin* 11.4 gm/dL (12.0-16.0); Mean Corpuscular HGB Conc 33 gm/dL (32-36); Mean Corpuscular Hemoglobin 29 pg (26-34); Mean Corpuscular Volume 88 fL (80-100); Monocytes Percent Auto 11.6 % (0.0-11.0); Neutrophils Absolute Auto 5.01 K/uL (1.7-7.0); Neutrophils Percent Auto 69.7 % (42.0-72.0); Platelet Count* 202 K/uL (140-440); RDW Coefficient of Variation % 13.6 % (11.5-15.5); Red Blood Count 3.95 m/uL (4.00-5.20); White Blood Count* 7.18 K/uL (4.50-11.00)
[2022-06-30 09:30] LABS: Slide Review Reflex No
[2022-06-30 09:32] LABS: Chloride* 103 mmol/L (96-114)
[2022-06-30 09:33] LABS: Potassium* 3.6 mmol/L (3.6-5.1); Sodium* 138 mmol/L (135-149)
[2022-06-30 09:35] LABS: Creatinine* 0.5 mg/dL (0.5-1.5); Est. Creatinine Clearance* 109.01; Estimated Glomerular Filt Rate 108 ml/min
[2022-06-30 09:36] LABS: Blood Urea Nitrogen* 8 mg/dL (7-30); Calcium* 8.6 mg/dL (8.4-10.6); Carbon Dioxide* 27 mmol/L (20-32); Glucose* 106 mg/dL (60-115)
[2022-06-30 09:39] LABS: C Reactive Protein* 8.3 mg/dL (0.5-1.0)
--- NOTE | 2022-06-30 10:59 | PM.IMPN1 ---
Progress Note: A&P Assessment and plan (1) Status post left knee replacement: Problem details: 06/09/2022. Uncomplicated procedure. VT prophylaxis with enoxaparin while hospitalized with cellulitis Status: Acute (2) Cellulitis of left leg: Problem details: Cellulitis appears to involve the left calf but not the left knee or the left ankle. No obvious synovitis. Ultrasound negative for DVT. Status: Acute (3) Positive blood culture: Problem details: Postoperative infection with positive blood culture will be treated with IV vancomycin pending identification and sensitivity. Pharmacy to assist with dosing. Continue IV vancomycin pending culture and sensitivity. Clinically appears to be a strep cellulitis which could be treated outpatient with cephalexin. If Staph aureus infection, patient will require more extensive evaluation for Staph bacteremia. Status: Acute Plan Continue in hospital for IV vancomycin pending sensitivities and cultures Time Spent With Patient Total time spent: Total time spent today is 30 minutes, 20 minutes in coordination of care discussed with patient, and other providers management of bacteremia and cellulitis Subjective Date Seen: 06/30/22 Interval history: 57-year-old female seen in followup of left leg cellulitis now 3 weeks status post left knee arthroplasty. Arthroplasty is performed without complications. She did well and was discharged to home where she continued to do well until a couple days prior to admission. She started have aching in her left calf below her left knee surgery and then developed redness there and then developed a fever. She presented the emergency room 2 days ago where she was diagnosed with a left calf cellulitis. Ultrasound at that time did not show DVT. Had blood cultures obtained. She was treated with cephalexin. Overnight her blood cultures turned positive and she was called back to the emergency room for evaluation. At that time she was felt still to have a leg cellulitis. She was seen by Dr. Boykin who felt that this was not a joint infection. Because of the positive blood cultures with Gram-positive cocci she was started on vancomycin and admitted for IV antibiotics and monitoring of her leg cellulitis. Overnight she reports feeling better. She thinks her fever and chills or resolving. She started have some itching in her leg. She otherwise reports generally feeling well. Exam Narrative: Exam Narrative: Left lower extremities examined. The erythema is about the same. Lines drawn around the erythema showed that it is about the same extent and intensity is about the same as well. No apparent abscess or fluctuance. She has very small areas of erythema just lateral to her patella but no other erythema around the knee joint. There is no significant effusion. Intact pedal pulses distally. Trace edema. Const: Vital Signs, click to edit/add: Vital Signs - 24 hr 06/29/22 11:59 06/29/22 16:23 06/29/22 17:30 Temperature 97.9 F 97.9 F Pulse Rate [Left A pical] Pulse Rate [Left P ulse Oximeter] Pulse Rate [Right Pulse Oximeter] 72 72 Respiratory Rate 18 16 Blood Pressure [Le ft Arm] Blood Pressure [Ri ght Upper Arm] 131/72 123/74 108/66 Pulse Oximetry 96 96 Oxygen Delivery Me thod Room Air Room Air 06/29/22 17:45 06/29/22 18:00 06/29/22 18:15 Temperature Pulse Rate [Left A pical] Pulse Rate [Left P ulse Oximeter] Pulse Rate [Right Pulse Oximeter] 81 70 Respiratory Rate Blood Pressure [Le ft Arm] Blood Pressure [Ri ght Upper Arm] 120/64 106/65 104/60 Pulse Oximetry 94 96 Oxygen Delivery Me thod Room Air Room Air 06/29/22 20:40 06/29/22 23:31 06/30/22 01:27 Temperature Pulse Rate [Left A pical] Pulse Rate [Left P ulse Oximeter] Pulse Rate [Right Pulse Oximeter] 69 77 76 Respiratory Rate Blood Pressure [Le ft Arm] Blood Pressure [Ri ght Upper Arm] 105/49 L 120/70 Pulse Oximetry 98 98 96 Oxygen Delivery Wi thod Room Air Room Air Room Air 06/30/22 02:36 06/30/22 02:36 06/30/22 02:36 Temperature 98.3 F 98.3 F Pulse Rate [Left A pical] 88 Pulse Rate [Left P ulse Oximeter] 84 Pulse Rate [Right Pulse Oximeter] Respiratory Rate 20 20 Blood Pressure [Le ft Arm] 146/86 H 146/86 H Blood Pressure [Ri ght Upper Arm] Pulse Oximetry 99 99 Oxygen Delivery Me thod Room Air Room Air Room Air Documenting provider has reviewed patient's vital signs: yes Labs Labs: Laboratory Results - last 24 hr 06/29/22 06/30/22 06/30/22 13:17 08:50 08:50 WBC 7.18 RBC 3.95 L Hgb 11.4 L Hct 34.9 MCV 88 MCH 29 MCHC 33 RDW Coeff of Eddie 13.6 Plt Count 202 Neut % (Auto) 69.7 Lymph % (Auto) 17.0 L [place] % (Auto) 11.6 H Eos % (Auto) 1.3 Baso % (Auto) 0.4 Neut # (Auto) 5.01 Lymph # (Auto) 1.20 [place] # (Auto) 0.80 Eos # (Auto) 0.09 Baso # (Auto) 0.03 Abs Immat Gran (auto) 0.00 Imm/Tot Granulo (auto) 0.0 Sodium 138 Potassium 3.6 Chloride 103 Carbon Dioxide 27 BUN 8 Creatinine 0.5 Estimated Creat Clear 109.01 Estimated GFR 108 Glucose 106 Calcium 8.6 C-Reactive Protein 8.3 H SARS-CoV-2 (PCR) Negative SARS-CoV-2 Influenza Type A (PCR) Negative PCR FLU A Influenza Type B (PCR) Negative PCR FLU B
[2022-06-30] MEDS: SENNOSIDES 1 TAB TABLET 2 TAB PO (13:37)
--- NOTE | 2022-06-30 14:14 | NUTR.NU ---
RDN with MD consult related to GF snacks. Visited with pt regarding GF snacks. Pt is very experienced following GF diet at home. Had discussion with RN re GF options available here. Pt states she has Kind bars that will work as snacks and her sister will also bring some GF options. Pt also knows that she can request various fresh fruit and applesauce or other fruit cups. Will continue to monitor and follow PRN as needed.
[2022-06-30 16:42] LABS: Albumin* 3.9 g/dL (3.3-5.0)
[2022-06-30 16:45] LABS: Alanine Aminotransferase* 16 U/L (4-35); Alkaline Phosphatase* 68 U/L (40-150); Aspartate Amino Transferase* 19 U/L (12-35); Total Protein* 6.6 g/dL (6.0-8.3)
--- NOTE | 2022-06-30 19:50 | PC.NURSE ---
shift note: vss stable. pt afeb. lt l/e marked redness. area marked warm to touch. Redness resovling from markings with small amount of raised red pimping to mid calf. Pt states area is itching. Offered cold pack, lotion and contact charge nurse to get order for po benadryl. LS clr. Pt up sba to bathroom. IV patent to lt hand. Pt received pain meds for pain 5-10/10 to lt l/e.
[2022-06-30] MEDS: diphenhydrAMINE 25 MG CAPSULE PO (22:20)
[2022-07-01 03:00] VITALS: RESP 16
--- NOTE | 2022-07-01 05:06 | PC.NURSE ---
[id number] Pt slept in recliner during night, pain 0-2/10 at rest, increase initially to 8/10 when getting up but then subsides to 4/10 with ambulation. Cellulitis decreasing in size from outlined area. independent in room with walker.
[2022-07-01] MEDS: diphenhydrAMINE 25 MG CAPSULE PO (05:52)
[2022-07-01] MEDS: ACETAMINOPHEN 325 MG TABLET 650 MG PO ×2 (05:53→21:06)
[2022-07-01] MEDS: HYDROmorphone 2 MG TABLET PO ×3 (05:53→18:32)
[2022-07-01 07:00] VITALS: BP 119/61; PULSE 66; RESP 16; TEMP 36.8; O2SAT 95
[2022-07-01 07:13] LABS: C Reactive Protein* 8.2 mg/dL (0.5-1.0)
[2022-07-01] MEDS: LEVOTHYROXINE 112 MCG TABLET PO (07:41)
[2022-07-01] MEDS: LEVOTHYROXINE 25 MCG TABLET PO (07:42)
--- NOTE | 2022-07-01 08:51 | CRLHL7_ITS ---
For Patients: As a result of the Century Cures Act, medical imaging exams and procedure reports are released immediately into your electronic medical record. You may view this report before your referring provider. If you have questions, please contact your health care provider. Indication: PICC line placement Technique: Grayscale images of the right basilic vein and right internal jugular vein submitted. IMPRESSION: Sonographic guidance for right arm PICC line placement. Dictated by Fran Taveras MD @ 07/03/2022 11:16:51 AM (Electronically Signed)
--- NOTE | 2022-07-01 08:52 | CRLHL7_ITS ---
For Patients: As a result of the Century Cures Act, medical imaging exams and procedure reports are released immediately into your electronic medical record. You may view this report before your referring provider. If you have questions, please contact your health care provider. INDICATION: PICC. TECHNIQUE: Chest 1 views. COMPARISON: None. FINDINGS: Lines and tubes: Right approach PICC has its tip approximately 2.5 cm proximal to the atrial caval junction. Lungs: Clear lungs. No consolidation. Pleura: No pleural effusion or pneumothorax. Heart and Mediastinum: The cardiomediastinal silhouette is normal. The vessels are unremarkable. Bones: Unremarkable. IMPRESSION: No acute cardiopulmonary disease. Dictated by Cristi Priest MD @ 07/01/2022 7:53:58 PM (Electronically Signed)
[2022-07-01] MEDS: CELECOXIB 200 MG CAPSULE PO ×2 (09:21→21:05)
[2022-07-01] MEDS: CEFAZOLIN 2 GM in 0.9 % SODIUM CHLORIDE Mini-bag 100 ML IVPB ×2 (09:21→17:36)
[2022-07-01] MEDS: GABAPENTIN 300 MG CAPSULE PO ×2 (09:21→21:06)
[2022-07-01] MEDS: MULTIVITAMIN/MINERALS 1 TABLET 1 TAB PO (09:21)
[2022-07-01 11:00] VITALS: BP 130/73; PULSE 63; RESP 16; TEMP 36.8; O2SAT 96
--- NOTE | 2022-07-01 11:38 | CRLHL7_ITS ---
For Patients: As a result of the Cures Act, medical imaging exams and procedure reports are released immediately into your electronic medical record. You may view this report before your referring provider. If you have questions, please contact your health care provider. INDICATION: Left calf cellulitis. TECHNIQUE: Ultrasound soft tissue limited. Sonographic images of the anterior left calf were obtained using barbosa-scale images. COMPARISON: None FINDINGS/IMPRESSION: Dedicated sonographic images of the anterior left calf shows mild subcutaneous edema. No fluid collection/abscess identified. Dictated by Regi Kang MD @ 07/01/2022 5:01:14 PM (Electronically Signed)
[2022-07-01 15:00] VITALS: BP 124/72; PULSE 69; RESP 16; TEMP 36.8; O2SAT 97
[2022-07-01] MEDS: rifAMPin 150 MG CAPSULE 300 MG PO ×2 (15:08→21:05)
--- NOTE | 2022-07-01 15:09 | PM.IMPN1 ---
Progress Note: A&P Assessment and plan (1) MSSA bacteremia: Problem details: Unable to transfer for infectious disease consultation and management. 1 of 2 cultures obtained 3 days ago, 06/28/2022, positive for MSSA. Subsequent daily cultures negative so far. Other than cellulitis on her leg there is no obvious clinical site of infection. Obtain echocardiogram. I spoke with Infectious Disease specialist, Jim Angel MD, who was very helpful in making a plan which includes outpatient Infectious Disease follow-up, 1 month of cefazolin 2 g Q 8 hours (PICC line) and rifampin 300 mg t.i.d.. Weekly CBC, LFTs, creatinine. Ultrasound to evaluate for occult abscess in the left leg. Status: Acute (2) Status post left knee replacement: Problem details: 06/09/2022. Uncomplicated procedure. VT prophylaxis with enoxaparin while hospitalized with cellulitis. Status: Acute (3) Cellulitis of left leg: Problem details: Cellulitis appears to involve the left calf but not the left knee or the left ankle. No obvious synovitis. Ultrasound negative for DVT. Status: Acute Plan Continue in hospital pending outpatient plan for ongoing IV antibiotics for the next month. Time Spent With Patient Total time spent: Total time spent today is 70 minutes. 40 minutes in coordination of care with other providers. 30 minutes discussing with patient ongoing evaluation management of MSSA bacteremia Subjective Date Seen: 07/01/22 Interval history: 57-year-old female seen in followup of left leg cellulitis and bacteremia. One of 2 blood cultures obtained 3 days ago has turned positive 2 days ago, now growing MSSA. The 2nd blood culture from 3 days ago as well as the blood cultures from 2 days ago and yesterday are still negative. Patient reports no symptoms of illness other than leg pain. She feels like her leg is getting better. She is not having head, neck, upper or lower back pain. No fevers Exam Narrative: Exam Narrative: She is alert and appears in no distress. Eyes are normal. Oropharynx normal. Neck is supple without mass or adenopathy. Respirations are clear to auscultation. Cardiovascular: S1, S2, regular rate and rhythm. No murmur gallop or rub. Abdomen: Bowel sounds active. Abdomen is soft without tenderness or mass. External genitalia normal. Skin on her trunk is normal without signs of trauma, ulceration, erythema. Extremities: Upper extremities normal in appearance without trauma or skin lesions including no splinter hemorrhages. Right lower extremity is normal. Her great toe has a small area of black discoloration on the medial distal aspect of the great toenail which she reports has been present for a long time, prior to her surgery. Similar finding on the left great toe also of a long duration. No other splinter hemorrhages. Left leg is similar to its appearance yesterday with erythema over most of the calf. It is still to the same extent as previously marked by lines. She still has 2 areas of erythema lateral to her patella on the left leg which are a little less intense and slightly smaller today. Intact pedal pulses. Const: Vital Signs, click to edit/add: Vital Signs - 24 hr 06/30/22 19:00 06/30/22 22:33 07/01/22 03:00 Temperature 98.2 F 98.2 F Pulse Rate [Left A pical] 81 71 Pulse Rate [Left P ulse Oximeter] 81 Respiratory Rate 18 18 16 Blood Pressure [Le ft Arm] 128/58 L 129/68 Pulse Oximetry 97 97 Oxygen Delivery Me thod Room Air Room Air 07/01/22 07:00 07/01/22 07:00 07/01/22 11:00 Temperature 98.2 F 98.2 F Pulse Rate [Left A pical] Pulse Rate [Left P ulse Oximeter] 66 66 63 Respiratory Rate 16 16 16 Blood Pressure [Le ft Arm] 119/61 130/73 Pulse Oximetry 95 96 Oxygen Delivery Me thod Room Air Room Air Documenting provider has reviewed patient's vital signs: yes Labs Labs: Laboratory Results - last 24 hr 06/30/22 07/01/22 08:50 06:14 Sodium 138 Potassium 3.6 Chloride 103 Carbon Dioxide 27 BUN 8 Creatinine 0.5 Estimated Creat Clear 109.01 Estimated GFR 108 Glucose 106 Calcium 8.6 Total Bilirubin 1.0 AST 19 ALT 16 Alkaline Phosphatase 68 C-Reactive Protein 8.2 H Total Protein 6.6 Albumin 3.9
--- NOTE | 2022-07-01 16:24 | PC.SOCIAL ---
Discharge planning- Faxed referral to [facility] at [phone]. Information that was sent was face sheet, Med List, and H&P. Followed up with a phone call to [facility] and spoke with Dean. Informed that initial information was sent over via fax for home infusion services for IV Antibiotic. Informed Dean that PICC Line will be placed today and when it is placed PICC line placement and order will be faxed. Received a phone call from Erika at [phone]. Erika states that she has checked insurance coverage and pt is covered 100%. Erika would like information on how long the antibiotic will be given for and if pt needs nursing at home such as labs, dressing changes, or PT/OT. This worker will get information and follow up with Erika. Checked in with charge nurse and was informed that pt will not get PICC line placed until after 6:00 pm due to a delay. Social Work will follow up tomorrow morning and provide information to [facility].
[2022-07-01] MEDS: LORazepam 1 MG TABLET PO (18:01)
--- NOTE | 2022-07-01 18:55 | PC.NURSE ---
Pt. alert and oriented, cooperative, and pleasant. Pt. rated pain in left leg 3-4/10 and requested PRN Dilauded, administered x2 and Pt. stated it did not help the pain. Requests Dilauded Q6hrs. Pt. up indp. w/walker in and Hallway. Pt. cont of bowels. and uses call light appropriately. Pt. having PICC line placed, needed PRN Ativan prior to administration. Tolerated well. Pt's IV in left hand patent and SL. VSS, on RA, Afebrile this shift. Redness to left lower leg still within the outline and pink in color.
[2022-07-01 21:00] VITALS: BP 142/72; PULSE 76; RESP 20; TEMP 37.1; O2SAT 99
[2022-07-01] MEDS: SENNOSIDES 1 TAB TABLET 2 TAB PO (21:18)
[2022-07-02 00:04] VITALS: RESP 20
[2022-07-02 00:43] VITALS: BP 112/55; PULSE 71; RESP 20; TEMP 36.8; O2SAT 95
[2022-07-02] MEDS: HYDROmorphone 2 MG TABLET PO ×2 (00:47→07:59)
[2022-07-02] MEDS: CEFAZOLIN 2 GM in 0.9 % SODIUM CHLORIDE Mini-bag 100 ML IVPB ×2 (00:48→09:24)
[2022-07-02 06:00] VITALS: BP 114/74; PULSE 71; RESP 18; TEMP 36.6; O2SAT 97
[2022-07-02 07:00] VITALS: BP 134/87; PULSE 71; RESP 18; TEMP 36.9; O2SAT 99
--- NOTE | 2022-07-02 07:08 | PC.NURSE ---
End of shift status [id number] Pt alert and oriented. PRN PO dilaudid given for pain with relief noted. VSS on room air. PICC line in place for long-term abx. Peripheral IV removed. Pt refusing lovenox and novolog at HS. Redness to LLE outlined and stayed within margins. Up independently with walker. Pt observed resting in chair overnight. Possible d/c to home today.
[2022-07-02] MEDS: LEVOTHYROXINE 112 MCG TABLET PO (07:59)
[2022-07-02] MEDS: LEVOTHYROXINE 25 MCG TABLET PO (07:59)
[2022-07-02] MEDS: CELECOXIB 200 MG CAPSULE PO (09:23)
[2022-07-02] MEDS: GABAPENTIN 300 MG CAPSULE PO (09:23)
[2022-07-02] MEDS: MULTIVITAMIN/MINERALS 1 TABLET 1 TAB PO (09:23)
[2022-07-02] MEDS: rifAMPin 150 MG CAPSULE 300 MG PO (09:23)
[2022-07-02] MEDS: SODIUM CHLORIDE 0.9 % (FLUSH) 10 ML SYRINGE IVF ×2 (09:39→12:23)
[2022-07-02] MEDS: 0.9 % SODIUM CHLORIDE 250 ml IV (09:39)
--- NOTE | 2022-07-02 10:50 | PC.SOCIAL ---
Follow up phone call to Erika at [facility]. Erika will come to the hospital and do patient instruction from 11:00 to 11:15am today. Erika provided her email address to send orders and PICC placement form. Emailed PICC line placement form and MD orders to Erika at [facility] ([email or web address]). Met with pt in pt's room and she confirmed that she has heard from Erika at [facility] and Erika will be at the [facility] between 11:00 - 11:15am to do patient instruction. Informed pt that [facility] has all information and pt's insurance covers the service at 100%. Informed pt if she had any other questions/concerns she can reach out to the Social Work Department at the [facility].
[2022-07-02 11:00] VITALS: BP 129/79; PULSE 66; RESP 16; TEMP 36.9; O2SAT 97
--- NOTE | 2022-07-02 12:08 | P.DS_ITS ---
DS: Providers Provider Date Seen: 07/02/22 Date of admission: 06/30/22 06:52 Primary care physician: Ilda Pozo MD Admitting Clinician: Brian Sanchez MD Date of Discharge: 07/02/22 DS: Diagnosis Discharge Diagnosis (1) MSSA bacteremia: Status: Acute Problem details: MSSA bacteremia thought due to leg cellulitis. No clinically apparent abscess. No ultrasound findings of abscess in the leg. No clinical endocarditis or other source of infection. Transthoracic echo without apparent vegetations. One of 2 blood cultures positive for MSSA 4 days ago. Subsequent daily blood cultures are negative so far. Initially treated with vancomycin then switched to Ancef. Continue Ancef and rifampin (due to new left knee arthroplasty) for 4 weeks. Infectious disease consultation as an outpatient with Dr. Jim Angel or his partner at [place] (2) Cellulitis of left leg: Status: Acute Problem details: Cellulitis appears to involve the left calf but not the left knee or the left ankle. No obvious synovitis. Ultrasound negative for DVT. Ultrasound negative for abscess (3) Status post left knee replacement: Status: Acute Problem details: 06/09/2022. Uncomplicated procedure. VT prophylaxis with enoxaparin while hospitalized with cellulitis. No current evidence of infection involving the left knee. DS: Summary Hospital Course Hospital Course: 57-year-old female admitted to the hospital with bacteremia and leg cellulitis. On June 09 she underwent left total knee arthroplasty without complications. Postoperative course was uncomplicated until 5 days ago when she developed fever and swelling and redness in her left leg. She was seen in our emergency department where she had blood cultures obtained and was treated with cephalexin for cellulitis of that left leg. The next day 1 of 2 blood cultures was positive for g positive cocci in clusters. She was admitted to the hospital and started on vancomycin. Yesterday the blood culture was identified as MSSA. She has had daily blood cultures which are negative to date. PICC line was placed and she was started on Ancef 2 g IV q.8 hours. Rifampin 300 mg p.o. t.i .d. also started due to knee replacement surgery. No evidence of infection in the left knee joint. No evidence of endocarditis on echo or clinically. No other apparent source of infection. She has been afebrile during her hospital stay. Her left leg cellulitis is gradually improving. Status at Discharge Functional status at discharge: independent ambulation Overall status at discharge: patient is progressing back to baseline Time Spent with Patient Time attestation: Total time spent providing and/or coordinating discharge services: Time spent: Greater than 30 minutes Exam Narrative: Exam Narrative: Left lower extremities examined today. The intensity of the cellulitis is modestly improved. The tenderness and warmth is modestly improved as well. There is slight erythema lateral to the left patella without apparent joint effusion or tenderness around the knee. The knee incision is clean and dry and well healed. Intact pedal pulses. No apparent fluctuance or abscess. Great toenails have subungual hematomas bilaterally. Per patient report these are several weeks old, prior to recent surgery. Const: Vital Signs, click to edit/add: Vital Signs - 24 hr 07/01/22 15:00 07/01/22 15:00 07/01/22 21:00 Temperature 98.2 F 98.8 F Pulse Rate [Left P ulse Oximeter] 69 69 76 Respiratory Rate 16 16 20 Blood Pressure [Le ft Arm] 124/72 142/72 H Pulse Oximetry 97 99 Oxygen Delivery Me thod Room Air Room Air 07/02/22 00:04 07/02/22 00:43 07/02/22 06:00 Temperature 98.3 F 98 F Pulse Rate [Left P ulse Oximeter] 71 71 Respiratory Rate 20 20 18 Blood Pressure [Le ft Arm] 112/55 L 114/74 Pulse Oximetry 95 97 Oxygen Delivery Me thod Room Air Room Air 07/02/22 07:00 07/02/22 07:00 Temperature 98.5 F Pulse Rate [Left P ulse Oximeter] 71 71 Respiratory Rate 18 18 Blood Pressure [Le ft Arm] 134/87 Pulse Oximetry 99 Oxygen Delivery Me thod Room Air Documenting provider has reviewed patient's vital signs: yes DS: Data Data Completed and Pending Labs on day of discharge: Preliminary micro results at discharge 06/30/22 08:50 Blood Culture - Preliminary Blood NO GROWTH AFTER 48 HOURS 06/29/22 15:07 Blood Culture - Preliminary Blood - Picc Line NO GROWTH AFTER 48 HOURS 06/29/22 15:16 Blood Culture - Preliminary Blood - Picc Line NO GROWTH AFTER 48 HOURS Discharge Plan Discharge Disposition: Home, Self-Care Date of Admission: 06/30/22 06:52 Attending Provider on Discharge: Thierno Fernandes Primary Care Provider: Ilda Pozo Condition: Stable Anticipated Discharge Date/Time: 07/02/22 10:12 Discharge Medications: New rifampin 150 mg Capsule 300 mg PO TID Qty: 120 0RF Continued fluticasone propionate 50 mcg/actuation spray,suspension 2 spray intranasal DAILY PRN gabapentin 300 mg capsule 300 - 600 mg PO BID Rx Instructions: 300 MG IN AM 600 MG IN PM levothyroxine 137 mcg tablet 137 mcg PO DAILY multivitamin with iron Tablet 1 tab PO DAILY celecoxib [Celebrex] 200 mg capsule 200 mg PO BID Ozempic 0.25 mg or 0.5 mg(2 mg/1.5 mL) pen injector 0.5 mg SUBCUT .WEEKLY aspirin [Aspirin Childrens] 81 mg tablet,chewable 81 mg PO BID 30 Days Qty: 60 0RF acetaminophen 500 mg capsule 500 - 1,000 mg PO Q6H MDD 4000mg per day PRN (Reason: pain) Qty: 100 0RF sennosides [Senna Lax] 8.6 mg Tablet 17.2 mg PO BID PRN (Reason: constipation) Qty: 100 0RF hydromorphone [Dilaudid] 2 mg tablet 2 mg PO Q6H PRN (Reason: pain) Discharge Orders: Discharge Order (Routine); Ordered 07/02/22 Ordered By: Thierno Fernandes Patient Education: Rifampin (By mouth), Bacteremia (DC) Additional Instructions: The infectious disease specialist, Dr Jim Angel from [facility] will call you with an appointment time with him or his partner in the next 1-2 weeks. You will be on 2 antibiotics, intravenous cefazolin and oral rifampin for 4 more weeks. Rifampin can cause your urine to turn orange. It also can cause irritation to her liver so I recommend avoiding medications or other things that can irritate the liver including alcohol. Activity Level: Activity as Tolerated Discharge Diet: Regular Follow Up Appointments: Ilda Pozo MD [Primary Care Provider] - (Set up appointment as needed.) Forms: [employer] Info Instructions
[2022-07-02] MEDS: ACETAMINOPHEN 325 MG TABLET 650 MG PO (12:22)
[2022-07-02 13:45] VITALS: TEMP 36.9
--- NOTE | 2022-07-02 14:13 | PC.NURSE ---
Discharge-- Very pleasant and cooperative, alert and oriented patient discharged to home via wheelchair with at approximately 1400. VSS and pt is afebrile. SPO2 maintained >90% on RA. Pain appears well managed with PO Dilaudid and Tylenol. Left lower extremity remains mildly edematous and reddened, but appears to be receding within previously drawn boundary and pt stated improvement as well. Incision to left knee [employer], well approximated and appears to be healing well. CMS WNL. LS CTA. BS+ x4, pt denied nausea and tolerated a regular diet with no difficulty. Pt ambulated in hallway and room independently with walker and tolerated it well. Infusion nurse visited patient in room today for an educational visist and pt appeared to have a clear understanding of instructions. Discharge education was provided including diagnosis info, symptoms to report, medications and follow up plan. Discharged with picc intact for home infusions. No further questions asked.
== END 2022-07-02 14:15 | disposition home or self-care (01) | DRG 872 ==
LOC: ED 14:53 → MEDSURG 06-30 02:25
PROVIDERS: Family Medicine; Admitting Provider Internal Medicine; Emergency Provider Family Medicine; PCP Family Medicine; Visit Provider Internal Medicine
DX: R78.81 Bacteremia (principal); L03.116 Cellulitis of left lower limb; E11.40 Type 2 diabetes mellitus with diabetic neuropathy, unspecified; B95.61 Methicillin susceptible Staphylococcus aureus infection as the cause of diseases classified elsewhere; Z96.652 Presence of left artificial knee joint; M51.26 Other intervertebral disc displacement, lumbar region; E03.9 Hypothyroidism, unspecified; E78.5 Hyperlipidemia, unspecified
CPT/HCPCS: 36415; 36573; 76882; 80048; 80053; 82962; 85025; 86140; 87040; 87631; 93306; 99285; A9153; A9270; C1751; G0378; J0690; J1200; J1650; J3370; J7050; J7120